=== PATIENT | female | born 1990 | race Caucasian/White ===

== ENCOUNTER 2025-02-09 13:19 | Emergency (ER) | payer OTHER, SELFPAY ==
--- OUTSIDE RECORDS SUMMARY | 2025-02-07 13:39 | XMS_ITS | Encounter Summary ---
Author Organization [facility] One [facility] tem Address [id number] [address] 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 She states that she is there for oxycodone abuse and last used 12 days ago. She was given 4mg of zofran in route. Pt reports headache. * Auth/Cert (Routine)SpecialtyDiagnoses / ProceduresReferred By ContactReferred To Contact [facility] [address] [place] [address] Phone: tel: fax: Referral IDStatusReasonStart DateExpiration DateVisits RequestedVisits [id number] Encounter Details DateTypeDepartmentCare Team (Latest Contact Info)Kalvlhhgouz34/04/2025 1:39 PM EST - 02/07/2025 3:57 PM ESTEmergency [facility] [address] [place] [address] Tonny Coelho, DO [address] [place] [address] Breakthrough seizure (CMS-HCC) (Primary Dx) Discharge Disposition: Home Social History Tobacco UseTypesPacks/DayYears UsedDateSmoking Tobacco: Never AssessedHunger ScreeningAnswerDate RecordedWithin the past 12 months we worried whether our food would run out before we got money to buy more.Never True02/08/2025Within the past 12 months the food we bought just didn't last and we didn't have money to get more.Never True02/08/2025CommentsUnknownSex and Gender InformationValueDate RecordedSex Assigned at BirthNot on fileLegal SexFemale 02/07/2025 1:35 PM ESTGender IdentityNot on fileSexual OrientationNot on file documented as of this encounter Last Filed Vital Signs Vital SignReadingTime TakenCommentsBlood Rhlajoof072/8012 3:30 PM EST Pwruk513302/07/2025 3:30 PM ESTTemperature--Respiratory Cwhx683804/10/2024 3:30 PM ESTOxygen Fywgsoowwc99%02/07/2025 3:30 PM ESTInhaled Oxygen Concentration-- Weight--Height--Body Mass Index--documented in this encounter Discharge Instructions * Discharge Instructions* MOOK Moscoso - 02/07/2025 3:25 PM EST Thank you for choosing us for your medical care. We know you have a choice, and we appreciate you choosing us for your medical concerns! You may receive a survey from the hospital about your visit. We very much appreciate your comments and concerns. Please read all medication insert instructions and side effects when dispensed by the pharmacy. Every medication has side effects, and you may experience any of them. Please call the emergency room with any questions or concerns you have. Please call your doctor for outpatient follow up and recommendations. The emergency room cannot replace ongoing care, and it is important for your personal physician to evaluate you and monitor your health. Return to the ER for increased pain, fever > 101.5, vomiting twice, or any concern you deem emergent. Valeri Delgado CNP documented in this encounter Medications at Time of Discharge MedicationSigDispense QuantityRefillsLast FilledStart DateEnd Date albuterol (PROVENTIL HFA;VENTOLIN HFA) 90 mcg/actuation inhaler Inhale 2 puffs every 6 (six) hours as needed for wheezing. biotin 10,000 mcg capsule Take by mouth. eletriptan (RELPAX) 40 mg tablet Take 1 tablet (40 mg total) by mouth once as needed for migraine. May repeat in 2 hours if unresolved. Do not exceed 80 mg in 24 hours. famotidine (PEPCID) 20 mg tablet Take 1 tablet (20 mg total) by mouth in the morning and 1 tablet (20 mg total) before bedtime. hydrOXYzine (ATARAX) 25 mg tablet Take 1 tablet (25 mg total) by mouth 3 (three) times a day as needed for itching. levETIRAcetam (KEPPRA) 500 mg tablet Take 1 tablet (500 mg total) by mouth in the morning and 1 tablet (500 mg total) before bedtime. loratadine (CLARITIN REDITABS) 10 mg disintegrating tablet Dissolve 1 tablet (10 mg total) on tongue in the morning. memantine (NAMENDA) 10 mg tablet Take 1 tablet (10 mg total) by mouth in the morning and 1 tablet (10 mg total) before bedtime. metoprolol tartrate (LOPRESSOR) 25 mg tablet Take 1 tablet (25 mg total) by mouth in the morning. mometasone-formoterol (DULERA) 200-5 mcg/actuation inhaler Inhale 2 puffs in the morning and 2 puffs before bedtime. omeprazole (PriLOSEC) 40 mg capsule Take 1 capsule (40 mg total) by mouth in the morning. OXcarbazepine (TRILEPTAL) 300 mg tablet Take 1 tablet (300 mg total) by mouth in the morning and 1 tablet (300 mg total) before bedtime. potassium chloride (KLOR-CON SPRINKLE) 10 MEQ CR capsule Take by mouth in the morning and before bedtime. prazosin (MINIPRESS) 2 mg capsule Take 1 capsule (2 mg total) by mouth nightly. QUEtiapine (SEROquel) 100 mg tablet Take 1 tablet (100 mg total) by mouth nightly. sertraline (ZOLOFT) 100 mg tablet Take 1 tablet (100 mg total) by mouth in the morning.documented as of this encounter ED Notes * Tonny Coelho, DO - 02/07/2025 1:55 PM EST Images from the original note were not included. [facility] - EMERGENCY Pt Name: Nakia Cannon Birthdate: 1990 Chief Complaint: Chief Complaint Patient presents with Seizure - Prior Hx Of Pt arrives from [facility] for c/o witnessed seizure. She states that she is there for oxycodone abuse and last used 12 days ago. She was given 4mg of zofran in route. Pt reports headache. History of Present Illness: Nakia Cannon is a 34 year old female that presents to ED via EMS from [facility] for complaint of breakthrough seizure. Patient states she has a history of psychogenic seizures dating back to 2011. Patient states she is currently in inpatient rehab for history of opiate addiction.States she has been taking her Keppra. Today staff noticed her having a seizure while sitting in a chair. Denies any falls or head injuries. Not currently postictal. Alert and oriented. 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 Past Surgical History: No past surgical history on file. Family History: No family history on file. Social History: Social History Socioeconomic History Marital status: Single Social Drivers of Health Financial Resource Strain: High Risk (12/12/2023) Received from [facility] Overall Financial Resource Strain (CARDIA) Difficulty of Paying Living Expenses: Very hard Food Insecurity: No Food Insecurity (01/15/2025) Received from [facility] Hunger Vital Sign Within the past 12 months, you worried that your food would run out before you got the money to buymore.: Never true Within the past 12 months, the food you bought just didn't last and you didn't have money to get more.: Never true Transportation Needs: No Transportation Needs (01/15/2025) Received from [facility] PRAPARE - Transportation In the past 12 months, has lack of transportation kept you from medical appointments or from getting medications?: No In the past 12 months, has lack of transportation kept you from meetings, work, or from getting things needed for daily living?: No Physical Activity: Inactive (12/12/2023) Received from [facility] Exercise Vital Sign On average, how many days per week do you engage in moderate to strenuous exercise (like a brisk walk)?: 0 days On average, how many minutes do you engage in exercise at this level?: 0 min Stress: Stress Concern Present (12/12/2023) Received from [facility] [place] [place] [employer] - Occupational Stress Questionnaire Feeling of Stress : Very much Social Connections: Socially Isolated (12/12/2023) Received from [facility] Social Connection and Isolation Panel In a typical week, how many times do you talk on the phone with family, friends, or neighbors?: More than three times a week How often do you get together with friends or relatives?: Twice a week How often do you attend congregational or restorationist services?: Never Do you belong to any clubs or organizations such as congregational groups, unions, fraternal or athletic groups, or school groups?: No How often do you attend meetings of the clubs or organizations you belong to?: Never Are you , , , , never , or living with a partner?: Never Interpersonal Safety: Patient Declined (09/26/2023) Received from [facility] Humiliation, Afraid, Rape, and Kick questionnaire Within the last year, have you been afraid of your partner or ex-partner?: Patient declined Within the last year, have you been humiliated or emotionally abused in other ways by your partner or ex-partner?: Patient declined Within the last year, have you been kicked, hit, slapped, or otherwise physically hurt by your partner or ex-partner?: Patient declined Within the last year, have you been raped or forced to have any kind of sexual activity by your partner or ex-partner?: Patient declined Housing Instability: Low Risk (01/15/2025) Received from [facility] Housing Stability Vital Sign In the last 12 months, was there a time when you were not able to pay the mortgage or rent on time?: No In the past 12 months, how many times have you moved where you were living?: 0 At any time in the past 12 months, were you homeless or living in a snf (including now)?: No Review of Systems: Review of Systems Constitutional: Negative for chills and fever. HENT: Negative for ear pain. Eyes: Negative for pain. Respiratory: Negative for shortness of breath. Cardiovascular: Negative for chest pain/discomfort. Gastrointestinal: Negative for abdominal pain, diarrhea, nausea and vomiting. Genitourinary: Negative for flank pain. Musculoskeletal: Negative for back pain. Skin: Negative for rash. Neurological: Positive for seizures. Negative for headaches. Psychiatric/Behavioral: Negative for sleep disturbance and suicidal ideas. Physical Exam: ED Triage Vitals [02/07/25 1348] Temp Heart Rate Resp BP SpO2 -- 78 18 122/73 100 % Temp src Heart Rate Source Patient Position BP Location FiO2 (%) -- Pulse Ox Sitting Left arm -- Vitals: 02/07/25 1348 BP: 122/73 Pulse: 78 Resp: 18 SpO2: 100% Physical Exam Vitals reviewed. HENT: Head: Normocephalic and atraumatic. Eyes: Conjunctiva/sclera: Conjunctivae normal. Cardiovascular: Rate and Rhythm: Normal rate. Pulmonary: Effort: Pulmonary effort is normal. Breath sounds: Normal breath sounds. Abdominal: General: There is no distension. Palpations: Abdomen is soft. Musculoskeletal: General: Normal range of motion. Cervical back: Normal range of motion and neck supple. Skin: General: Skin is warm and dry. Neurological: General: No focal deficit present. Mental Status: She is alert and oriented to person, place, and time. GCS: GCS eye subscore is 4. GCS verbal subscore is 5. GCS motor subscore is 6. Procedure: Procedures Re-evaluation: 1525 - no postictal period noted. No elevated lactate. Given loading dose of Keppra. Will dischargewith instructions to follow up with practitioner Neurology. Encouraged to continue with Keppra. Medical Decision Making Plan of care - loading dose of Keppra, labs, urine Amount and/or Complexity of Data Reviewed Labs: ordered. Decision-making details documented in ED Course. ED Course: Clinical Impressions as of 02/07/25 1525 Breakthrough seizure ([facility]) . ED Disposition ED Disposition Discharge Date/Time Sanna Feb 07, 2025 3:25 PM Comment At the time of discharge, the plan has been discussed with the patient regarding the diagnosis and prognosis. All questions have been answered. Verbal discharge instructions were discussed with the patient. The patient has been advised to follow up w ith their Primary Care Provider within 1 week. The patient was also instructed to return to the ED if their symptoms change, worsen, new symptoms arise or if they have any additional concerns. IDr. Coelho personally performed a ckre-up-wljc diagnostic evaluation on this patient. I personally made and approved the management plan for this patient and take responsibility for the patient management. Additional Notes/Findings: This is a 34-year-old female sent by EMS for evaluation of a possible seizure Patient does report a history of nonepileptic seizures States that she was recently started on Trileptal and Keppra States that she has been taking them as prescribed Describes that she was sitting in her chair when she had a presumed seizure event today No fall or injury Denies any recent illness or fever No cough or pulmonary concerns No chest pain Has had vague upper abdominal discomfort Has been intermittent without any specific precipitating, aggravating, or relieving factors No nausea/vomiting No genitourinary or stool complaints Denies any current paresthesias, focal weakness, or other neurologic concerns Review of systems otherwise negative On examination she appears in no acute distress Morbidly obese Heart is regular in rate and rhythm Lungs are clear to auscultation Abdomen is soft and nontender No rebound tenderness or guarding She is neuro intact GCS 15 She is alert and oriented IV Keppra ordered Labs reviewed Patient observed here for almost 2 hours No abnormal mentation or seizure activity Stable for outpatient follow up Admission not indicated Please note that portions of this note were completed with a voice recognition program. Efforts were made to edit the dictations but occasionally words are mis-transcribed. MOOK Moscoso 02/07/25 1402 Tonny Coelho DO 02/07/25 1439 MOOK Moscoso 02/07/25 1525 Tonny Coelho DO 02/07/25 1531 documented in this encounter Plan of Treatment Not on file documented as of this encounter Procedures Procedure NamePriorityDate/TimeAssociated DiagnosisCommentsER EXTRA URINE MARBLE STAT104/10/2024 2:52 PM EST ER EXTRA URINE IXDTJOPBLYG88/04/2025 2:52 PM EST ER EXTRA ZPJFLELDU75/04/2025 2:52 PM EST DRUG SCREEN, UOVYNETWB96/04/2025 2:52 PM EST POCT , URINE (NUCG)Enywirw2102/07/2025 2:29 PM EST POCT NURSING URINE MACROSCOPIC MUSmeztcz18/04/2025 2:27 PM EST LACTATE W/ AUPOAKODHU74/04/2025 2:09 PM EST CBC WITH AUTO OQHHNLJAANJXWPOH68/04/2025 2:09 PM EST XDEDZZKUXCDCS37/04/2025 2:09 PM EST LIPASESTAT Add-on02/07/2025 2:09 PM EST COMPREHENSIVE METABOLIC OHDWQNKZC34/04/2025 2:09 PM EST documented in this encounter Results * Drug Screen, Urine (02/07/2025 2:52 PM EST)ComponentValueRef RangeTest Method Analysis TimePerformed AtPathologist SignatureAMPHETAMINE/METHAMPNegative Rresnxjy47/04/2025 5:28 PM [facility] AMPH/METH screening cut off = 1000 ng/mLCOCAINE METABOLITENegativeNegative 02/07/2025 5:28 PM [facility]:Cocaine screening cut off value = 300 ng/vESDLLVTEArjajvqlDoqbrxxn10/04/2025 5:28 PM [facility]:Ecstasy screening cut off value = 500 ng/hSAXFHTMCRNItmpeyyyXkvsmkmx78/04/2025 5:28 PM [facility]:Methadone screening cut off value = 300 ng/mL.Opiates NstwodypJrnftlaa26/04/2025 5:28 PM [facility] Comment: Opiates screening cut off value = 300 ng/mL This test is used for the detection of codeine, hydrocodone (>1000 ng/mL), morphine and hydromorphone (>900 ng/mL) in urine. MNWPSIYWZJuvoriinJzggrzxd97/04/2025 5:28 PM [facility]: Oxycodone screening cut off value = 300 ng/mL This test is used for the detection of oxycodone and oxymorphone in urine. HCGQIJFFLVUNMZpktwmphGaaxgvne44/04/2025 5:28 PM [facility]:Phencyclidine screening cut off value = 25 ng/mLCANNABINOIDS HkgcuaxsCppxwgjc79/04/2025 5:28 PM [facility] Comment:Cannabinoids/THC screening cut off value = 50 ng/mLUrine Barbiturates YervskuxGdecpbuz00/04/2025 5:28 PM [facility] Comment:Barbiturates screening cut off value = 200 ng/mLBENZODIAZEPINESNegative Kfvtjzsc95/04/2025 5:28 PM [facility]: Benzodiazepines screening cut off value = 200 ng/mLSpecimen (Source)Anatomical Location / LateralityCollection Method / VolumeCollection TimeReceived TimeUrine 02/07/2025 2:52 PM EST02/07/2025 5:07 PM EST Narrative Authorizing ProviderResult TypeResult StatusAmber Danny TECHNICAL MANAGER-CNPURINE ORDERABLESFinal ResultPerforming OrganizationAddressty/State/[facility] CodePhone Number [address] [address], [place] * Extra Urine [place] (02/07/2025 2:52 PM EST)ComponentValueRef RangeTest Method Analysis TimePerformed AtPathologist SignatureExtra TubeAuto Resulted 02/07/2025 4:02 PM [facility] (Source) Anatomical Location / LateralityCollection Method / VolumeCollection Time Received TimeUrineUrine specimen collection, clean catch / Wkmwgvo5502/07/2025 2:52 PM EST02/07/2025 3:00 PM EST Narrative Authorizing ProviderResult TypeResult StatusAmber Danny TECHNICAL MANAGER-CNPURINE ORDERABLESFinal ResultPerforming OrganizationAddressty/[facility]/ZIP CodePhone Number [address] [address], [place] * Extra Urine Culture (02/07/2025 2:52 PM EST)ComponentValueRef RangeTest Method Analysis TimePerformed AtPathologist SignatureExtra TubeAuto Resulted 02/07/2025 4:02 PM ESTPROMarinHealth Medical Center (Source) Anatomical Location / LateralityCollection Method / VolumeCollection Time Received TimeUrineUrine specimen collection, clean catch / Iqwwcwe0502/07/2025 2:52 PM EST02/07/2025 3:00 PM EST Narrative Authorizing ProviderResult TypeResult StatusAmber Danny TECHNICAL MANAGER-CNPURINE ORDERABLESFinal ResultPerforming OrganizationAddressCity/State/ZIP CodePhone Number [address] [place] [address], [place] * Extra Urine (02/07/2025 2:52 PM EST)ComponentValueRef RangeTest MethodAnalysis TimePerformed AtPathologist SignatureExtra TubeAuto Zypjlwua94/04/2025 4:02 PM ESTPar[facility] (Source)Anatomical Location / LateralityCollection Method / VolumeCollection TimeReceived TimeUrineUrine specimen collection, clean catch / Cljyxjb4502/07/2025 2:52 PM EST02/07/2025 3:00 PM EST Narrative Authorizing ProviderResult TypeResult StatusAmber Danny TECHNICAL MANAGER-CNPURINE ORDERABLESFinal ResultPerforming OrganizationAddressty/State/ZIP CodePhone Number [address] [place] [address], [place] * POCT , urine (02/07/2025 2:29 PM EST)ComponentValueRef RangeTest MethodAnalysis TimePerformed AtPathologist SignaturePOC Urine NegativeNegative, Chupofurjpvdf84/04/2025 2:35 PM ESTPar[facility] (Source)Anatomical Location / LateralityCollection Method / VolumeCollection TimeReceived PgsfXvacu60/04/2025 2:29 PM EST 02/07/2025 2:35 PM EST Narrative Authorizing ProviderResult TypeResult StatusPOINT OF CARE TEST ORDERABLESFinal ResultPerforming OrganizationAddressty/State/ZIP CodePhone Number [address] [place] [address], [place] * (ABNORMAL) POCT Nursing Urine Macroscopic UA (02/07/2025 2:27 PM EST)Component ValueRef RangeTest MethodAnalysis TimePerformed AtPathologist [facility] Urine Specific Gravity1.0201.010, 1.015, 1.020, 1.7315902/07/2025 2:29 PM EST [facility] Urine Leukocyte EsteraseNegative Dlknvlqx87/04/2025 2:29 PM [facility] Urine NgwrruaUehhiennAzgytcpy87/04/2025 2:29 PM [facility] Urine pH6.05.0, 6.0, 6.5, 7.0, 7.5, 8.0, 8.5, 5. 2:29 PM [facility]PR[facility] Urine ProteinTrace(A)Negative 02/07/2025 2:29 PM [facility] Urine Glucose YryteygoTagxagxs13/04/2025 2:29 PM [facility] Urine KetonesTrace(A)Lflzncta25/04/2025 2:29 PM [facility] Urine Urobilinogen0.2 E.U./dL02/07/2025 2:29 PM [facility] Urine BilirubinSmall(A)Dzpfxbdw18/04/2025 2:29 PM [facility] Urine Blood/HGBTrace(A)Negative 02/07/2025 2:29 PM ESTGRAND LAKE JOINT TOWNSHIP DISTRICT MEM[facility]IAL HOSPITALpecimen (Source) Anatomical Location / LateralityCollection Method / VolumeCollection Time Received XzkoDhcbs36/04/2025 2:27 PM EST02/07/2025 2:29 PM EST Narrative Authorizing ProviderResult TypeResult StatusPOINT OF CARE TEST ORDERABLESFinal ResultPerforming OrganizationAddressCity/State/ZIP CodePhone Number [address] [place] [address], [place] * Lipase (02/07/2025 2:09 PM EST)ComponentValueRef RangeTest MethodAnalysis Time Performed AtPathologist AhfkacbgzDRYBGX4017 - 40 U/L104/10/2024 3:19 PM EST [facility] (Source)Anatomical Location / LateralityCollection Method / VolumeCollection TimeReceived TimeBloodVenous blood / UnknownVenipuncture / Vgyubif5902/07/2025 2:09 PM EST02/07/2025 2:20 PM EST Narrative Authorizing ProviderResult TypeResult StatusAmber Danny TECHNICAL MANAGER-CNPLAB BLOOD ORDERABLESFinal ResultPerforming OrganizationAddressCity/State/ZIP CodePhone Number [address] [address], [place] * Magnesium (02/07/2025 2:09 PM EST)ComponentValueRef RangeTest MethodAnalysis TimePerformed AtPathologist SignatureMAGNESIUM1.91.8 - 2.6 mg/dL02/07/2025 2:42 PM ESTPar[facility] (Source)Anatomical Location / LateralityCollection Method / VolumeCollection TimeReceived Time BloodVenous blood / UnknownVenipuncture / Gcvjrzk3802/07/2025 2:09 PM EST 02/07/2025 2:20 PM EST Narrative Authorizing ProviderResult TypeResult StatusAmber Delgado TECHNICAL MANAGER-CNPLAB BLOOD ORDERABLESFinal ResultPerforming OrganizationAddressCity/State/ZIP CodePhone Number [address] [place] [address], [place] * Lactate w/ Reflex (02/07/2025 2:09 PM EST)ComponentValueRef RangeTest Method Analysis TimePerformed AtPathologist SignatureLACTATE W/REFLEX1.30.4 - 2.0 mmol/L104/10/2024 2:41 PM ESTPar[facility] (Source)Anatomical Location / LateralityCollection Method / VolumeCollection TimeReceived TimeBloodVenous blood / UnknownVenipuncture / Opgtolm5602/07/2025 2:09 PM EST02/07/2025 2:20 PM EST Narrative [facility] - 02/07/2025 2:41 PM EST Result did not trigger repeat Lactate, re-order if needed. Authorizing ProviderResult TypeResult StatusAmber Danny TECHNICAL MANAGER-CNPLAB BLOOD ORDERABLESFinal ResultPerforming OrganizationAddressCity/State/ZIP CodePhone Number [facility] [address] [place] [address], * (ABNORMAL) Comprehensive metabolic panel (02/07/2025 2:09 PM EST)Component ValueRef RangeTest MethodAnalysis TimePerformed AtPathologist SignatureSODIUM 630062 - 146 mmol/L104/10/2024 2:42 PM ESTPROPOMONA [facility] POTASSIUM3.93.5 - 5.0 mmol/L104/10/2024 2:42 PM ESTMERCY [facility]ORAIN HOSPITALCHLORIDE10298 - 109 mmol/L104/10/2024 2:42 PM ESTPROPOMONA VALLEY HOSPITAL MEDICAL CENTERCARBON PKZVDVV1373 - 32 mmol/L104/10/2024 2:42 PM ESTMERCY [facility] LORAIN HOSPITALANION TOG699 - 15 mmol/L104/10/2024 2:42 PM EST [facility] HOSPITALBLOOD UREA FEAMRLWM643 - 23 mg/dL02/07/2025 2:42 PM ESTMERCY [facility] LORAIN HOSPITALCREATININE0.920.40 - 1.00 mg/dL 02/07/2025 2:42 PM [facility]Comment:METHOD TRACEABLE TO IDMS TBHDOFXMKOXHNUL6714 - 99 mg/dL02/07/2025 2:42 PM EST [facility] HOSPITALCALCIUM9.08.5 - 10.5 mg/dL02/07/2025 2:42 PM ESTMERCY HE[facility] LORAIN HOSPITALTOTAL PROTEIN7.06.0 - 8.0 g/dL 02/07/2025 2:42 PM ESTMERCY [facility] LORAIN HOSPITALALBUMIN4.03.2 - 5.3 g/dL02/07/2025 2:42 PM ESTMERCY HE[facility] LORAIN HOSPITALALKALINE MZWYAATGSQZ5480 - 130 U/L104/10/2024 2:42 PM ESTPROPOMONA VALLEY HOSPITAL MEDICAL CENTERAST28<=41 U/L104/10/2024 2:42 PM [facility] ALT32(H)<=31 U/L104/10/2024 2:42 PM [facility] BILIRUBIN,TOTAL0.50.3 - 1.2 mg/dL02/07/2025 2:42 PM [facility]IL[facility] HOSPITALEGFR Non-Race Azabcfmuh07>=60 ml/min/1.73sq.m104/10/2024 2:42 PM [facility]ITALComment: eGFR not reported due to non-numeric value for Creatinine. Reported eGFR is based on the CKD-EPI 2020 equation that does not use a race coefficient. Specimen (Source)Anatomical Location / LateralityCollection Method / Volume Collection TimeReceived TimeBloodVenous blood / UnknownVenipuncture / Unknown 02/07/2025 2:09 PM EST02/07/2025 2:20 PM EST Narrative Authorizing ProviderResult TypeResult StatusAmber Locust TECHNICAL MANAGER-CNPLAB BLOOD ORDERABLESFinal ResultPerforming OrganizationAddressCity/State/ZIP CodePhone Number [facility] [address] * (ABNORMAL) CBC auto differential (02/07/2025 2:09 PM EST)ComponentValueRef RangeTest MethodAnalysis TimePerformed AtPathologist SignatureWBC5.74 - 11 10^902/07/2025 2:31 PM [facility]RBC Count3.95 3.8 - 5.2 10^12L104/10/2024 2:31 PM [facility] Nsxgikxxse74.3(L)11.7 - 15.5 g/dL02/07/2025 2:31 PM [facility]Hematocrit34.8(L)35 - 47 %02/07/2025 2:31 PM [facility]MCV8880 - 100 fL02/07/2025 2:31 PM [facility]MCH28.627 - 34 pg02/07/2025 2:31 PM [facility]MCHC32.532 - 36 g/dL02/07/2025 2:31 PM [facility]STM[facility]ITALRDW15.011.5 - 15 %02/07/2025 2:31 PM [facility]ITALPlatelet Ueuub401440 - 450 10^9/L104/10/2024 2:31 PM [facility]MPV8.17 - 12 fL02/07/2025 2:31 PM EST [facility]ITALNeutrophils %54.9%02/07/2025 2:31 PM EST [facility]ITALLymphocytes %31.2%02/07/2025 2:31 PM EST [facility]ITALMonocytes %10.8%02/07/2025 2:31 PM EST [facility]ITALEosinophils %1.8%02/07/2025 2:31 PM EST [facility]ITALBasophils %1.3%02/07/2025 2:31 PM EST [facility]ITALNeutrophils Absolute (A)3.11.5 - 6.6 10^9/L 02/07/2025 2:31 PM [facility]ymphocytes Absolute 1.81.0 - 3.5 10^9/L104/10/2024 2:31 PM [facility] Monocytes Absolute0.60.0 - 0.9 10^9/L104/10/2024 2:31 PM [facility]STMER[facility]ITALEosinophils Absolute0.10.0 - 0.4 10^9/L104/10/2024 2:31 PM EST [facility]Basophils Absolute0.10.0 - 0.2 10^9/L 02/07/2025 2:31 PM ESTMER[facility]OS[facility]ITALDifferential Type AUTOMATED WUOIZRTBRAWS42/04/2025 2:31 PM [facility]imen (Source)Anatomical Location / LateralityCollection Method / VolumeCollection TimeReceived TimeBloodVenous blood / UnknownVenipuncture / Iqvbddj0402/07/2025 2:09 PM EST02/07/2025 2:20 PM EST Narrative Authorizing ProviderResult TypeResult StatusAmber Danny TECHNICAL MANAGER-CNPLAB BLOOD ORDERABLESFinal ResultPerforming OrganizationAddressCity/State/ZIP CodePhone Number [facility] [address] [place] [address], [place] documented in this encounter Visit Diagnoses Diagnosis Breakthrough seizure ([facility])- Primary documented in this encounter Administered Medications Medication OrderMAR ActionAction DateDoseRateSite levETIRAcetam (KEPPRA) 1,500 mg in sodium chloride 0.9 % 115 mL IVPB 1,500 mg, intravenous, at 460 mL/hr, Administer over 15 Minutes, Once, On Sanna 02/07/25 at 1355, For 1 dose, Look-alike/sound-alike medication. Verify indication for use. New Bag02/07/2025 2:24 PM EST1,500 mg460 mL/hrdocumented in this encounter Active and Recently Administered Medications Times are shown in EST.Medication Order// levETIRAcetam (KEPPRA) 1,500 mg in sodium chloride 0.9 % 115 mL IVPB (COMPLETED) 1,500 mg, intravenous, at 460 mL/hr, Administer over 15 Minutes, Once, On Sanna 02/07/25 at 1355, For 1 dose, Look-alike/sound-alike medication. Verify indication for use. * 1424 (New Bag - Provider: Westley Marcus RN) * 1439 (Stop Bag - Provider: Westley Marcus RN) documented in this encounter Care Teams Team MemberRelationshipSpecialtyStart DateEnd Date Derick Padgett MD [address] [address] PCP - GeneralInternal Tqrefycu82/4/25documented as of this encounter
--- OUTSIDE RECORDS SUMMARY | 2025-02-08 22:31 | XMS_ITS | Encounter Summary ---
Author Organization [facility] [employer] Career[employer] [facility] tem Address [id number] [address] [place] [address] Care Team Providers Care Ore Mixer Name Role Phone Derick Padgett MD Primary Care Provider Reason for Visit * ReasonCommentsSeizure - Prior Hx OfPt states she has had 4 seizures since 5pm. [facility]. She states that anxiety is what brings them on and she feels she needs something for anxiety. * Auth/Cert (Routine)SpecialtyDiagnoses / ProceduresReferred By ContactReferred To Contact [facility] [address] [facility] [place] [address] Phone: tel: fax: Referral IDStatusReasonStart DateExpiration DateVisits RequestedVisits [id number] Encounter Details DateTypeDepartmentCare Team (Latest Contact Info)Rudstjdroqf04/05/2025 10:31 PM EST - 02/08/2025 11:22 PM ESTEmergency [facility] [address] [place] [id number] Claudette Oliveros, DO [address] [place] [address] Anxiety (Primary Dx); Seizure with normal neurologic examination (CMS-HCC) Discharge Disposition: Home Social History Tobacco UseTypesPacks/DayYears UsedDateSmoking Tobacco: NeverSmokeless Tobacco: Never Tobacco Cessation:Counseling Given: Not Answered Hunger ScreeningAnswerDate RecordedWithin the past 12 months we worried whether our food would run out before we got money to buy more.Never True02/08/2025 Within the past 12 months the food we bought just didn't last and we didn't have money to get more.Never True02/08/2025CommentsNoSex and Gender InformationValueDate RecordedSex Assigned at BirthNot on fileLegal SexFemale 02/07/2025 1:35 PM ESTGender IdentityNot on fileSexual OrientationNot on file documented as of this encounter Last Filed Vital Signs Vital SignReadingTime TakenCommentsBlood Mlsryqpl411/8902/08/2025 11:12 PM EST Mczia055102/08/2025 11:12 PM IWIQlxjeyuuwvf89.9 ??C (98.5 ??F)02/08/2025 10:17 PM ESTRespiratory Xier441904/11/2024 11:12 PM ESTOxygen Rvpzfnrfgz12%02/08/2025 11:12 PM ESTInhaled Oxygen Concentration--Fdhvte970.7 kg (275 lb)02/08/2025 10:17 PM YDBNstvuk580.6 cm (5' 4 )02/08/2025 10:17 PM ESTBody Mass Index47. 10:17 PM ESTdocumented in this encounter Discharge Instructions * Discharge Instructions* Claudette Oliveros DO - 02/08/2025 11:09 PM EST Continue with the treatment at [facility]. Thank you for allowing me to participate in your healthcare needs and for choosing us to provide your medical care today. Please return to the emergency department anytime for any complications or other concerns. Please call your doctor for outpatient follow up and recommendations. 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 * Attachments The following attachments cannot be sent through Care Everywhere. * Anxiety (suspected) in adults ??? ED discharge instructions (Beninese) documented in this encounter Medications at Time [...] as of this encounter ED Notes * Claudette Oliveros, - 02/08/2025 11:09 PM EST Images from the original note were not included. [facility] Pt Name: Nakia Cannon Birthdate: 1990 Chief Complaint: Chief Complaint Patient presents with Seizure - Prior Hx Of Pt states she has had 4 seizures since 5pm. Pt is at [facility] for opioid abuse. She states that anxiety is what brings them on and she feels she needs something for anxiety. History of Present Illness: Patient is a 34-year-old female who presents to the emergency department with complaints of seizures and anxiety. Patient says she has a longstanding history of anxiety disorder she was actually at [facility] rehab facility getting over I believe narcotic use and doing well than free of the medicationfor about 10-14 days at this time. 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 She said Ativan usually helps and they are giving her currently hydralazine which is not helping as she would hope. No other modifying or associated factors. Past Medical History: Past Medical History: Diagnosis Date Autonomic neuropathy POTS (postural orthostatic tachycardia syndrome) Seizures (CMS-HCC) Past Surgical History: History reviewed. No pertinent surgical history. Family History: History reviewed. No pertinent family history. Social History: Social History Socioeconomic History Marital status: Single Tobacco Use Smoking status: Never Smokeless tobacco: Never Social Drivers of Health Financial Resource Strain: High Risk (12/12/2023) Received from [facility] Overall Financial Resource Strain (CARDIA) Difficulty of Paying Living Expenses: Very hard Food Insecurity: No Food Insecurity (02/08/2025) Hunger Screening Food Insecurity - Worry: Never True Food Insecurity - Inability: Never True Transportation Needs: No Transportation Needs (01/15/2025) Received from [facility] PRAPARE - Transportation In the past 12 months, has lack of transportation kept you from medical appointments or from getting medications?: No In the past 12 months, has lack of transportation kept you from meetings, work, or from getting things needed for daily living?: No Physical Activity: Inactive (12/12/2023) Received from [facility] Exercise Vital Sign On average, how many days per week do you engage in moderate to strenuous exercise (like a brisk walk)?: 0 days On average, how many minutes do you engage in exercise at this level?: 0 min Stress: Stress Concern Present (12/12/2023) Received from [facility] [employer] [place] [employer] - Occupational Stress Questionnaire Feeling of Stress : Very much Social Connections: Socially Isolated (12/12/2023) Received from [facility] Social Connection and Isolation Panel In a typical week, how many times do you talk on the phone with family, friends, or neighbors?: More than three times a week How often do you get together with friends or relatives?: Twice a week How often do you attend quaker or anglican services?: Never Do you belong to any clubs or organizations such as quaker groups, unions, fraternal or athletic groups, or school groups?: No How often do you attend meetings of the clubs or organizations you belong to?: Never Are you , , , , never , or living with a partner?: Never Interpersonal Safety: Patient Declined (09/26/2023) Received from [facility] Humiliation, Afraid, Rape, and Kick questionnaire Within [...] Housing Instability: Low Risk (01/15/2025) Received from [facility] Housing Stability Vital Sign In the last 12 months, was there a time when you were not able to pay the mortgage or rent on time?: No In the past 12 months, how many times have you moved where you were living?: 0 At any time in the past 12 months, were you homeless or living in a chcf (including now)?: No Review of Systems: Review of Systems Physical Exam: ED Triage Vitals [02/08/257] Temp Heart Rate Resp BP SpO2 36.9 ??C (98.5 ??F) 88 14 (!) 145/98 96 % Temp src Heart Rate Source Patient Position BP Location FiO2 (%) -- -- -- -- -- Vitals: 02/08/25 2217 BP: (!) 145/98 Temp: 36.9 ??C (98.5 ??F) Pulse: 88 Resp: 14 SpO2: 96% Height: 162.6 cm (5' 4 ) Weight: 124.7 kg (275 lb) Physical Exam Vitals and nursing note reviewed. Constitutional: General: She is not in acute distress. Appearance: She is well-developed. She is obese. She is not ill-appearing or diaphoretic. HENT: Head: Normocephalic and atraumatic. Right Ear: External ear normal. Left Ear: External ear normal. Nose: Nose normal. Mouth/Throat: Mouth: Mucous membranes are moist. Eyes: General: No scleral icterus. Extraocular Movements: Extraocular movements intact. Conjunctiva/sclera: Conjunctivae normal. Pupils: Pupils are equal, round, and reactive to light. Neck: Thyroid: No thyromegaly. Vascular: No JVD. Trachea: No tracheal deviation. Cardiovascular: Rate and Rhythm: Normal rate and regular rhythm. Heart sounds: Normal heart sounds. No murmur heard. No friction rub. No gallop. Pulmonary: Effort: Pulmonary effort is normal. No respiratory distress. Breath sounds: Normal breath sounds. No wheezing or rales. Chest: Chest wall: No tenderness. Abdominal: General: Bowel sounds are normal. There is no distension. Palpations: Abdomen is soft. There is no mass. Tenderness: There is no abdominal tenderness. There is no guarding or rebound. Musculoskeletal: General: No tenderness or deformity. Normal range of motion. Cervical back: Normal range of motion and neck supple. Skin: General: Skin is warm and dry. Capillary Refill: Capillary refill takes less than 2 seconds. Findings: No rash. Neurological: General: No focal deficit present. Mental Status: She is alert and oriented to person, place, and time. Cranial Nerves: No cranial nerve deficit. Psychiatric: Mood and Affect: Mood normal. Behavior: Behavior normal. Judgment: Judgment normal. Comments: Patient admits to being anxious in dealing with her rehab process. She is not suicidal nor homicidal Procedure: Procedures Re-evaluation: Re-Evaluation Medical Decision Making After I left the room in discussion with the patient that would give her a dose of Ativan she had apseudo-seizure and was very easily arousable and is at baseline discuss this with her we will give her the 1 dose of Ativan but she needs to go back to [facility] and follow up with her primary care physician team. Patient is agreeable to the outpatient management. Amount and/or Complexity of Data Reviewed External Data Reviewed: radiology. Details: 01/08/2025 CT brain negative Risk Prescription drug management. ED Course: Clinical Impressions as of 02/08/25 230 Anxiety Seizure with normal neurologic examination ([facility]) - Pseudo-seizure . ED Disposition ED Disposition Discharge Date/Time TueFeb 08, 2025 11:08 PM Comment At the time of discharge, [...] or if they have any additional concerns. . Please note that portions of this note were completed with a voice recognition program. Efforts were made to edit the dictations but occasionally words are mis-transcribed. Claudette Oliveros DO 02/08/25 5584 * Jose Eastman RN - 02/08/2025 10:52 PM EST Pt pressed call light, this nurse walked into pts room to answer and pt appeared to be seizing. This nurse lowered head of bed to flat and sternal rubbed pt, and called provider to bedside. Pt stopped seizing and opened bilateral eyes when this nurse sternal rubbed pt. . Pt asked what happened and this nurse answered pts question. documented in this encounter Plan of Treatment Not on file documented as of this encounter Visit Diagnoses Diagnosis Anxiety- Primary Anxiety state, unspecified [facility]iz[facility] with normal [facility] examination [facility] documented in this encounter Administered Medications Medication OrderMAR ActionAction DateDoseRateSite LORazepam (ATIVAN) tablet 1 mg 1 mg, oral, Once, On Tue02/08/25 at 2254, For 1 dose, Look-alike/sound-alike medication - verify indication for use. Given02/08/2025 11:00 PM EST1 mgdocumented in this encounter Active and Recently Administered Medications Times are shown in EST.Medication Order LORazepam (ATIVAN) tablet 1 mg (COMPLETED) 1 mg, oral, Once, On Tue02/08/25 at 2254, For 1 dose, Look-alike/sound-alike medication - verify indication for use. * 2300 (Given - Provider: Jose Eastman RN) documented in this encounter Care Teams Team MemberRelationshipSpecialtyStart DateEnd Date Derick Padgett MD [address] [address] PCP - GeneralInternal Lchircmx30/4/25documented as of this encounter
[2025-02-09] VITALS (14 sets, daily range): BP systolic 120–122; BP diastolic 69–80; PULSE 74–96; TEMP 36.8; O2SAT 97–99; BMI 47.2
--- NOTE | 2025-02-09 13:32 | ECG_ITS ---
The [facility] Test Date: 2025-02-09 Pat Name: RAVINDER KANG Department: Room: - Gender: Female [employer] T[employer]: : 1990 Requested By: 1030 Order Number: [id number] Reading MD: PAULA PELLETIER M.D. Measurements Intervals [place] Rate: 82 P: 61 OK: 166 QRS: 2 QRSD: 78 T: 42 QT: 382 QTc: 421 Interpretive Statements 1100 Sinus rhythm 8102 Low QRS voltage in chest leads 9120 atypical ECG No previous ECG available for comparison Electronically Signed On 02-09-2025 15:08:55 EST by PAULA PELLETIER M.D.
--- NOTE | 2025-02-09 13:32 | CT_ITS ---
The [address] [address] Patient Name: RAVINDER KANG MRN: [id number] date: 1990 Sex: F Assigned Patient Location: ER Current Patient Location: ED.MAIN Accession/Order Number: [id number] Exam Date: 02/09/2025 15:00 Report Date: 02/09/2025 15:41 At the request of: WILLIAM MARIE MD Procedure: CT head/brain wo con CT BRAIN WITHOUT CONTRAST: CLINICAL HISTORY: Reported seizure COMPARISON: None TECHNIQUE: Contiguous axial unenhanced images were obtained through the brain. This CT exam was performed using one or more following dose reduction techniques: Automated exposure control, adjustment of the mA and/or kV according to patient size, or use of iterative reconstruction technique. FINDINGS: There is no evidence of midline shift, intra or extra-axial fluid collection, hemorrhage or CT evidence of acute large vascular distribution stroke. Visualized intraorbital contents appear unremarkable. Visualized paranasal sinuses are clear. The surrounding soft tissues are normal. CT/CT head/brain wo con IMPRESSION: NO ACUTE INTRACRANIAL ABNORMALITY. Impression dictated by: Seun Eduardo M.D. 02/09/2025 3:41 PM Dictation Location: [place] [address] Electronically authenticated by: [id number] Y Date: 02/09/2025 15:41
--- OUTSIDE RECORDS SUMMARY | 2025-02-09 13:39 | XMS_ITS | Clinical Summary ---
Author Organization [facility] Address [address] [place] [address] Care Team Providers Care Bell Person Name Role Phone Unavailable Primary Care Provider Unavailabl e Source Comments [facility] is fully rolled out with thefollowing exceptions:General Clinical Research [facility] Social History Tobacco UseTypesPacks/DayYears UsedDateSmoking Tobacco: Never Assessed CommentsUnknownSex and Gender InformationValueDate RecordedSex Assigned at Not on fileLegal WszQarjar15/16/2012 5:22 AM ESTGender IdentityNot on fileSexual OrientationNot on file Plan of Treatment Health MaintenanceDue DateLast DoneCommentsMMR IMMUNIZATION (1 of 1 - Standard series)05/30/1992DTAP/Tdap/Td IMMUNIZATION (1 - Tdap)05/30/1998VARICELLA IMMUNIZATION (1 of 2 - 13+ 2-dose series)05/30/2004HEPATITIS B IMMUNIZATION (1 of 3 - 19+ 3-dose series)05/30/2010HPV IMMUNIZATION (1 - 3-dose SCDM series) 05/30/2018AMB SEASONAL FLU VACCINE (#1)5COVID-19 Vaccine ( - 2024- season)2024HIB IMMUNIZATIONAged OutNo longer eligible based on patient's age to complete this topicIPV IMMUNIZATIONAged OutNo longer eligible based on patient's age to complete this topicMCV4 IMMUNIZATIONAged OutNo longer eligible based on patient's age to complete this topicMENINGOCOCCAL B VACCINEAged OutNo longer eligible based on patient's age to complete this topicPNEUMOCOCCAL IMMUNIZATIONAged OutNo longer eligible based on patient's age to complete this topicRespiratory Syncytial Virus (RSV) <20moAged OutNo longer eligible based on patient's age to complete this topic
--- OUTSIDE RECORDS SUMMARY | 2025-02-09 13:40 | XMS_ITS | Clinical Summary ---
Author Organization [facility] Address [address] [place] [address] Care Team Providers Care Facilities Operations Technician Name Role Phone Nasrin Bustamante MD Unavailable [phone] Derick Padgett MD Primary Care Provider [phone] Allergies Active AllergyReactionsCriticalityNoted DateCommentsProchlorperazineAnxiety 11/11/2015FludrocortisoneOther (See Comments)High06/03/2013 Severe symptomatic hypokalemia FpjfcFokja82/02/3563WjnvxovqilErlnbpp91/08/2014 dizziness, headache, chest pain. Allergy is very questionable. Pt continues to complain of similar symptoms despite Prednisone being off. MsfirhqeyqkobcIouxhgd90/06/2016 Medications * This document contains information received from the source organization and may not represent a complete record from that organization. MedicationSigDispense QuantityRefillsLast FilledStart DateEnd DateStatus trazodone (DESYREL) 100 MG TABS Indications:insomniaTake 1-2 tablets by mouth nightly. Indications: insomnia 60 tablet Active prazosin (MINIPRESS) 2 MG CAPS Indications:nightmaresTake 1 capsule by mouth nightly. Indications: nightmares 15 capsule Active loratadine (CLARITIN) 10 MG TABS Take 10 mg by mouth daily.Active QUEtiapine (SEROQUEL) 300 mg tablet Take 300 mg by mouth 2 (two) times a day.Active linaclotide (LINZESS) 290 MCG CAPS Take 290 mcg by mouth daily.11/23/2018Active ondansetron (ZOFRAN) 4 mg tablet Indications:Nausea and vomiting, intractability of vomiting not specified, unspecified vomiting typeTake 1 tablet by mouth every 8 (eight) hours as needed (vomiting). 9 tablet 10/07/2021ctive methocarbamol (ROBAXIN) 750 MG TABS Take 1 tablet by mouth 3 (three) times daily as needed. 21 tablet 04/09/2022ctive FLUoxetine (PROZAC) 20 MG CAPS Take 20 mg by mouth daily.10/21/2022ctive acetaZOLAMIDE (DIAMOX) 250 MG TABS Take 250 mg by mouth.11/24/2022ctive albuterol (PROVENTIL) (2.5 mg/3 mL) 0.083% nebulizer solution SMARTSIG:Via Ppeuoderz78/20/2023ctive azelastine 0.1% (ASTELIN) 137 mcg/spray nasal spray SMARTSIG:Both Nares11/24/2022ctive folic acid (FOLVITE) 1 MG TABS SMARTSI By Mouth Twice Daily11/24/2022ctive meloxicam (MOBIC) 15 MG TABS Take 15 mg by mouth daily.11/24/2022ctive memantine (NAMENDA) 10 MG TABS Take 10 mg by mouth.11/24/2022ctive metoprolol succinate (TOPROL-XL) 25 mg extended-release tablet Take 25 mg by mouth daily.11/24/2022ctive midodrine (PROAMATINE) 2.5 MG TABS Take 2.5 mg by mouth 3 (three) times daily.11/24/2022ctive omeprazole (PRILOSEC) 20 MG CPDR Take 20 mg by mouth.11/24/2022ctive potassium chloride (KLOR-CON, K-TAB) 10 MEQ TBCR Take 10 mEq by mouth daily.11/24/2022ctive sodium chloride 1 g TABS SMARTSI By Mouth Daily11/27/2022ctive traZODone (DESYREL) 150 MG TABS SMARTSI-2 Tablet(s) By Mouth Every Night PRN11/24/2022ctive montelukast (SINGULAIR) 10 MG TABS Take 1 tablet by mouth at bedtime. 30 tablet 110/17/2023Active budesonide-formoterol (SYMBICORT) 80-4.5 MCG/ACT AERO 2 puffs 2 (two) times daily.Active diclofenac DR (VOLTAREN) 75 MG TBEC Take 75 mg by mouth 2 (two) times daily.Active fluticasone (FLONASE) 50 mcg/act nasal spray Use 1 spray in each nostril daily as needed.Active ipratropium-albuterol (DUONEB) 0.5-2.5 (3) MG/3ML nebulizer solution Inhale 3 mLs with nebulizer daily.Active OLANZapine (ZYPREXA ZYDIS) 5 mg disintegrating tablet Dissolve and swallow 5 mg by mouth daily as needed.5Active QUEtiapine (SEROQUEL) 300 mg tablet Take 1 tablet by mouth 2 (two) times a day. 60 tablet 5Active sertraline (ZOLOFT) 50 MG TABS Take 2 tablets by mouth daily. 60 tablet 5Active traZODone (DESYREL) 300 MG TABS Take 1 tablet by mouth at bedtime. 30 tablet 5Active OLANZapine (ZYPREXA ZYDIS) 5 mg disintegrating tablet Dissolve and swallow 1 tablet by mouth at bedtime. Place tablet in mouth and allow to dissolve. Swallow with saliva. 30 tablet 5Active Active Problems ProblemNoted DateDiagnosed DateAuditory hvsyirvqsucdra57/17/2016Visual myhmvnnmgoitrm13/17/2016Syncope and /13/2016History of psychiatric gjcewnzj03/13/2016Atypical chest pain07/18/20156123Hpcrkyxponb48/13/2016Hyponatremia 07/18/20155048Dodmklvcbhl08/13/3526Bpmjejiuyvpzx64/13/2016Recurrent major depression in partial qhcqubdfy95/13/2016Idiopathic zpwosbisziu32/19/2016Sinus tachycardia 06/24/20151005Smuhzmuj91/12/2016Chest pain, geahqykttjomzod73/11/2016UTI (urinary tract infection)06/13/2015Psychosomatic pdyzrxfa97/07/1673Bsqyaz71/07/2016 Attention deficit hyperactivity disorder (ADHD)04/26/2015Mild intermittent asthma without ggubgtqmdgao85/20/2016Depression with suicidal znvwhanc35/06/2016 UTI (urinary tract infection)03/12/2015Urinary retention s/p bladder stimulator jpfgsskoi18/06/2016Lumbosacral spondylosis without kqvktrnrsy95/02/2015POTS (postural orthostatic tachycardia syndrome)02/13/2014Vasovagal eprcksu6102/13/2014 Citrobacter hkoqvaqad41/28/2014Neurogenic vftprfg1901/30/2014utonomic dysfunction 01/30/2014Severe major depression with psychotic ccvuzuar24/26/2014 Pyelonephritis, acute01/29/2014Nausea and qfykybwc66/25/7131Dwtfvguuz50/03/2014 DEPRESSION // PXYYCZO5004/28/2013 Overview (01/02/2014): Sees the [facility]. Psychotic features, PTSD, borderline also diagnosed Seasonal evginupqo07/07/2013sthma (hx)08/11/2012Lumbosacral ligament sprain 12/04/20108748Lnhffdilrbcn40/21/2011norexia nervosaDifficulty concentrating Excessive daytime sleepinessMemory disturbanceMood disturbanceMorning headache PND (paroxysmal nocturnal dyspnea)RLS (restless legs syndrome)Nausea and vomiting in adultAdjustment disorder with mixed anxiety and depressed mood Borderline personality disorderSevere recurrent major depressive disorder with psychotic featuresSevere episode of recurrent major depressive disorder, with psychotic features Resolved Problems ProblemNoted DateDiagnosed DateResolved DateAbdominal pain, RUQ (right upper quadrant)Nonintractable xslonsdg06 Pdbbbmpnjzx52 Overview (01/02/2014): Essentially normal ekg and echo. Ojdqtheyrzc85Lumbosacral ligament quiudz63 Seborrheic kxxfklcehe03Postural xnvpegiblmm74/03/2014 01/02/2014cetaminophen pscobznh74/21/3335Tpmjxrfxfwj77/21/2014 05/04/20138620Axaodpqfmqdx22/21/Low serum cortisol level04/27/2013 05/11/2013Reactive lrjfppqsvq49nxiety Throat painDysphagiaCough04/14/2013 04/23/2013cute upper respiratory okndygbsi79Dizziness Precordial painradycardia, sinus Syncope, atzbkxwdj87Palpitations04/21/2012 01/02/2014EXCESSIVE MDEKEQUIQAQS07Severe recurrent major depression with psychotic paadzcca68/29/2014orderline personality disorder 01/02/2014nxiety /29/2014cute urinary /29/2014 Encounters DateTypeDepartmentCare JcerDmagibhqsxz65/14/2025 5:53 PM EST - 01/18/2025 8:33 PM ESTEmer[facility] [address] [place] [address] Gregory Perez MD Other specified injuries of head, initial encounter [S09.8XXA] Discharge Disposition: Home or Self Carefrom Last 3 Months Immunizations ImmunizationAdministration DatesNext DueDT, Dzfxadazl28/21/2003DUONEB IS 2.5 MG 05/23/2015Diphtheria, Tetanus, and Pertussis (DTaP)11/21/1995,12/02/1992, 03/04/1992,1991,1991Hepatitis A, IM (19 and older)04/22/2011, 08/04/2010Hepatitis B, Adult08/04/2010,01/12/2010,11/11/2009,06/25/2002Hib PRP-T conjugate, IM (ActHIB, Hiberix)09/02/1992,03/04/1992,1991,1991 Influenza Vaccine, Inactivated, Quadrivalent PF12/21/2014Influenza Whole, IM 01/30/2014,02/24/2007,03/11/2003Measles/Mumps/Rubella, SQ10/02/2010,11/20/1999, 09/02/1992Meningococcal Polysaccharide Vaccine LFEC413Poliovirus Inactivated, IM/SQ08/04/2010TB-PPD06/04/1992Tdap (Tetanus, Diphtheria & Pertussis)11/11/2009Trivalent Poliovirus Vaccine, Live, Oral11/21/1995, 12/02/1992,1991,1991 Family History Medical HistoryRelationNameCommentsAsthmaBrother 1DiabetesBrother 1Mental illnessBrother 1Alcohol abuseFatherHypertensionFatherAsthmaMotherHigh BPMother HypertensionMotherOSAPaternal AuntendometriosisPaternal Auntand maternal aunt DefectsSister 1Kidney DiseaseSister 1Learning disabilitiesSister 1Mental retardationSister 1CPSister 2autismSister 3RelationNameStatusCommentsBrother 1 AliveBrother 2AliveFatherAliveMotherAlivePaternal AuntSister 1AliveKaylaSister 2 Sister 3 Social History Tobacco UseTypesPacks/DayYears UsedDateSmoking Tobacco: FormerCigarettesPassive Smoke Exposure: PastSmokeless Tobacco: Never Tobacco Cessation:Counseling Given: Not Answered Alcohol UseStandard Drinks/WeekCommentsNot Currently0 (1 standard drink = 0.6 oz pure alcohol)occFood InsecuritiesAnswerDate RecordedWorried about running out of foodNot on file03/26/2023Food BoughtNot on 03/26/2023Housing/Utilities AnswerDate RecordedWorried about losing homeNot on 03/26/2023Stayed outside houseNot on 03/26/2023Unable to get utilitiesNot on 03/26/2023 Interpersonal SafetyAnswerDate RecordedFeel physically or emotionally unsafe where currently liveNot on 03/26/2023Harm by anyoneNot on file03/26/2023 Emotionally HarmedNot on 03/26/2023TransportationAnswerDate RecordedWorried about transportationNot on 03/26/2023CommentsNoSex and Gender InformationValueDate RecordedSex Assigned at BirthNot on fileLegal SexFemale 06/02/2012 9:23 PM EDTGender IdentityNot on fileSexual OrientationNot on file OccupationIndustryJob Start DateJob End Dateday careNot on fileNot on fileNot on file Last Filed Vital Signs Vital SignReadingTime TakenCommentsBlood Sreitavt729/6711 8:20 PM EST Grfnc840501/18/2025 8:20 PM ZACHwdgydnpuwh66.3 ??C (97.3 ??F)01/18/2025 5:28 PM ESTRespiratory Ztgp164303/20/2024 8:20 PM ESTOxygen Befmvotqmp82%01/18/2025 8:20 PM ESTInhaled Oxygen Concentration--Lnodpu348.4 kg (272 lb)01/18/2025 5:26 PM JRNJyehqm075.6 cm (5' 4 )01/18/2025 5:26 PM ESTBody Mass Index46.6901/18/2025 5:26 PM EST Plan of Treatment Health MaintenanceDue DateLast DoneCommentsPap Vmvrdemzh30/22/, 11/07/2014, 09/10/2013, Additional history existsHPV (1 - 3-dose SCDM series) 05/30/2018COVID-19 Vaccine ( season)/10/2020, 04/20/2020 DTap,Tdap,and Td (8 - Td or Tdap), 11/11/2009, 11/21/1995, Additional history existsRSV Vaccine (60+ or ) (1 - 1-dose 75+ series) 05/30/2066Meningococcal conjugate valent 4 (MCV4)Aged Out10/10/2007No longer eligible based on patient's age to complete this topicPneumococcal 0-49Completed 02/18/2022Influenza KgszzthXbakugjum57/13/2025, 11/18/2023, 02/18/2022, Additional history existsRSV Immunization (<20 months)Aged OutNo longer eligible based on patient's age to complete this topic Goals GoalPatient Goal TypeAssociated ProblemsRecent ProgressPatient-Stated?Author Blood Pressure < 140/90 Blood Rrlezdcg437/67(01/18/2025 8:20 PM EST)Nasrin Beltre MD Increase physical activity Lifestyle HabitsNoWarrenElizabeth hillsith Eat breakfast Lifestyle HabitsNoAyah Eli LDL, CALCULATED < 100 Result Sxkjsdeqy522(09/27/2023 7:39 AM EDT)Nasrin Beltre MD CREATININE < 1.3 Result Component.92(02/07/2025 2:09 PM EST)Nasrin Beltre MD Exercising Regularly Self-ManagementNoNasrin Bustamante MD Patient has no barriers to completing goals Self-ManagementNasrin Beltre MD Patient increasing knowledge of chronic disease(s) Self-ManagementOn track(12/02/2014 11:25 AM EDT)Nasrin Beltre MD Tobacco cessation (or no tobacco) Self-ManagementOn track(12/02/2014 11:25 AM EDT)Nasrin Beltre MD Patient working to improve diet Self-ManagementNoNasrin Bustamante MD Patient is monitoring Blood Pressure weekly Self-ManagementNoNasrin Bustamante MD Procedures Procedure NamePriorityDate/TimeAssociated DiagnosisCommentsPOCT GONADOT HCG TFWZNRUWKSFXzstzcv08/14/2025 7:12 PM EST CULTURE BGDMSZSRX84/14/2025 7:06 PM EST URINALYSIS WITH REFLEX TO MICROSCOPIC AND YJTWFOGYIEN87/14/2025 7:[address] HEAD WO GKPECGRRPASO38/14/2025 6:52 PM EST CYTOLOGY OHASrzjlfz06/22/2016 9:32 AM EDT Encounter for routine gynecological examination from Last 3 Months or Most Recently Relevant to Health Maintenance Results * POCT GONADOT HCG QUALITATIVE (01/18/2025 7:12 PM EST)ComponentValueRef Range Test MethodAnalysis TimePerformed AtPathologist SignatureHCG,POC URINENEGATIVE NEGATIVECENTRAL RECEIVING GSSpecimen (Source)Anatomical Location / Laterality Collection Method / VolumeCollection TimeReceived Time01/18/2025 7:12 PM EST 01/18/2025 7:13 PM EST Narrative Authorizing ProviderResult TypeResult StatusGregory Perez MDPOCT ORDERABLES - DEVICEFinal ResultPerforming OrganizationAddressCity/State/ZIP CodePhone Number [facility] [id number] [place] [address] CENTRAL RECEIVING GS [address] [place] [address] * Culture Urine (01/18/2025 7:06 PM EST)ComponentValueRef RangeTest Method Analysis TimePerformed AtPathologist SignatureSPECIMEN DESCRIPTIONUrine, Clean CatchMICROBIOLOGY GSHSPECIMEN DESCRIPTIONTested at [facility] [address] [address]NHSJEBBTNNQH GSHSPECIMEN TYPEUrineMICROBIOLOGY GSH SPECIMEN TYPETested at [place] [address] [facility] [address] MICROBIOLOGY GSHCULTURE RESULTSMultiple bacterial species isolated from urine consistent with urogenital commensal organisms.CHEMISTRY HEMATOLOGYMICRONOTE Tested at: [facility], [address] [place], [place] [address]CHEMISTRY HEMATOLOGYREPORT UAHSUU8301/20/2025 FINAL REPORTCHEMISTRY HEMATOLOGYSpecimen (Source)Anatomical Location / LateralityCollection Method / VolumeCollection TimeReceived TimeUrineURINE SPECIMEN OBTAINED BY CLEAN CATCH PROCEDURE / Apxcvud0301/18/2025 7:06 PM EST01/18/2025 7:11 PM EST Narrative Authorizing ProviderResult TypeResult StatusAna María DENNY-CMICROBIOLOGY - GENERAL ORDERABLESFinal ResultPerforming OrganizationAddressCity/State/ZIP CodePhone Number [facility] [address] [place] [address] MICROBIOLOGY GSH [address] [place] [phone] CHEMISTRY HEMATOLOGY [address] [place] [address] * (ABNORMAL) Urinalysis with Reflex to Microscopic and Culture (01/18/2025 7:06 PM EST)ComponentValueRef RangeTest MethodAnalysis TimePerformed AtPathologist SignatureUA SPECIMEN SOURCEUrine, Clean CatchCENTRAL RECEIVING GSURINE TYPE UrineCENTRAL RECEIVING GSCOLORYellowYellowCHEMISTRY HEMATOLOGYAPPEARANCE, URINETURBID(A)ClearCHEMISTRY HEMATOLOGYPH, URINE6.05.0 - 8.0CHEMISTRY HEMATOLOGYSPEC. GRAVITY, URINE1.0211.005 - 1.029CHEMISTRY HEMATOLOGYPROTEIN, URINE1+ (30-70 mg/dL)(A)NEGATIVECHEMISTRY HEMATOLOGYGLUCOSE, URINENEGATIVE NEGATIVECHEMISTRY HEMATOLOGYKETONE, URINETrace(A)NEGATIVECHEMISTRY HEMATOLOGY BILIRUBIN, URINENEGATIVENEGATIVECHEMISTRY HEMATOLOGYBLOOD, URINENEGATIVE NEGATIVECHEMISTRY HEMATOLOGYUROBILINOGEN, URINENORMALNORMAL mg/dLCHEMISTRY HEMATOLOGYNITRITE, URINENEGATIVENEGATIVECHEMISTRY HEMATOLOGYLEUKOCYTE ESTERASE, URINE3+ (250 Eduarda/uL)(A)NEGATIVECHEMISTRY HEMATOLOGYRBC, URINE6 to 10 (A)<6 /HPFCHEMISTRY HEMATOLOGYWBC, URINE21 to 50(A)<6 /HPFCHEMISTRY HEMATOLOGY SQUAMOUS EPI CELLS>20/HPFCHEMISTRY HEMATOLOGYBACTERIAMANY(A)NONE /HPFCHEMISTRY HEMATOLOGYYEASTPRESENTCHEMISTRY HEMATOLOGYMUCUSPRESENTCHEMISTRY HEMATOLOGY Comment:Tested at [place] [id number] (Source)Anatomical Location / LateralityCollection Method / VolumeCollection TimeReceived Time01/18/2025 7:06 PM EST01/18/2025 7:11 PM EST Narrative Authorizing ProviderResult TypeResult StatusAna María GUTIÉRREZ ORDERABLES NO PERFinal ResultPerforming OrganizationAddressCity/State/ZIP Code Phone Number [facility] [address] [place] [address] [address] CHEMISTRY HEMATOLOGY [address] [place] [address] * CT HEAD WO CONTRAST (01/18/2025 6:52 PM EST)Anatomical RegionLaterality ModalityBrainComputed TomographySpecimen (Source)Anatomical Location / LateralityCollection Method / VolumeCollection TimeReceived Time01/18/2025 7:00 PM EST Impressions 01/18/2025 7:00 PM EST No acute intracranial abnormality. Narrative 01/18/2025 7:00 PM EST HISTORY: Head trauma, moderate-severe COMPARISON: ??04/13/[address] TECHNIQUE: ??Noncontrast multiplanar CT images of the head NOTE: ??If there are questions about the content of this report, please contact [facility] radiologyby calling [phone] FINDINGS: BRAIN PARENCHYMA: No intra or extra-axial mass or hemorrhage. ??Jones-white differentiation intact. VENTRICLES/SULCI: No midline shift. No hydrocephalus. EXTRA-AXIAL SPACES: Unremarkable. PARANASAL SINUSES/MASTOIDS: Paranasal sinuses clear. Mastoid air cells clear. BONES: ??No fracture. OTHER: None Procedure Note Gabriel Brandt MD - 01/18/2025 HISTORY: Head trauma, moderate-severe COMPARISON: 04/13/[address] TECHNIQUE: Noncontrast multiplanar CT images of the head NOTE: If there are questions about the content of this report, pleasecontact [facility] radiology by calling [phone] FINDINGS: BRAIN PARENCHYMA: No intra or extra-axial mass or hemorrhage. Jones-white differentiation intact. VENTRICLES/SULCI: No midline shift. No hydrocephalus. EXTRA-AXIAL SPACES: Unremarkable. PARANASAL SINUSES/MASTOIDS: Paranasal sinuses clear. Mastoid air cellsclear. BONES: No fracture. OTHER: None IMPRESSION No acute intracranial abnormality. Authorizing ProviderResult TypeResult StatusAna María DENNY-CCTFinal Result * CYTOLOGY WHEELMAN (05/27/2015 9:32 AM EDT)ComponentValueRef RangeTest Method Analysis TimePerformed AtPathologist SignatureCYTOLOGY-GYNCYTOLOGY GYNECOLOGICAL REPORT Name: RAVINDER CANNON EPI#: [id number] Case #: [id number] Final Cytologic Diagnosis A. ??Cervical/Endocervical thinprep pap: Adequacy: ? Satisfactory for evaluation, endocervical transformation zone component present. Interpretation: ? Negative for intraepithelial lesion or malignancy. ?? This specimen has been analyzed by the ThinPrep Imaging System ([employer].), an automated imaging and review system, which assists the new car salesperson and/or pathologist in evaluation of cells on Thinprep Pap tests. Electronically Signed Out By Daylin RUEDA(ASCP) Source of Specimen(s) A: Cervical/Endocervical thinprep pap Clinical History Menstrual History: Not stated Signed out at [facility], [address] [place] [address] ??[id number] [facility] Non-Formatted Report [facility] LABORATORYSpecimen (Source)Anatomical Location / LateralityCollection Method / VolumeCollection TimeReceived Time05/27/2015 9:32 AM EDT05/28/2015 9:46 AM EDTComment:CERVICAL/ENDOCERVICAL THINPREP PAP Narrative Authorizing ProviderResult TypeResult StatusKim White CNPPATHOLOGY/CYTOLOGY ORDERABLESFinal ResultPerforming OrganizationAddressCity/State/ZIP CodePhone Number [facility] [address] [place] [phone] from Last 3 Months or Most Recently Relevant to Health Maintenance Insurance * Guarantor: Ravinder Cannon TypeRelation to PatientDate of PhoneBilling AddressPersonal/SchohgAree04/26/1991 HOMELESS ATTN: [facility] [place] [address] * Guarantor: Ravinder Cannon TypeRelation to PatientDate of PhoneBilling AddressPersonal/OqhzllHwsq89/26/1991 HOMELESS ATTN: [facility] [place] [address] Advance Directives * Full Code (Latest Code Status on File) Date ActivatedDate InactivatedComments08/20/2015 11:32 PM08/26/2015 4:11 PM * Full Code Date ActivatedDate InactivatedComments07/18/2015 12:35 AM07/19/2015 2:40 PM * Full Code Date ActivatedDate InactivatedComments06/11/2015 10:52 PM06/25/2015 1:31 PM * Full Code Date ActivatedDate InactivatedComments04/25/2015 6:08 PM2 7:52 PM * Full Code Date ActivatedDate InactivatedComments03/11/2015 10:43 PM03/14/2015 9:04 PM Care Teams Team MemberRelationshipSpecialtyStart DateEnd Date Derick Padgett MD PCP - GeneralInternal Medicine03/14/22 Nasrin Bustamante MD Internal Medicine04/14/13
--- OUTSIDE RECORDS SUMMARY | 2025-02-09 13:40 | XMS_ITS | Encounter Summary ---
Author Organization [facility] Address [address] [place] [address] Care Team Providers Care Discharging Machine Operator Name Role Phone Derick Padgett MD Primary Care Provider Mitchel Vick MA Unavailable Unavailable Source Comments This information has been disclosed to you from confidential records protectfrom disclosure by state law. You shall make no further disclosure of thisinformation without the specific, written, and informed release of theindividual to whom it pertains, or as otherwise permitted by law. A generalauthorization for the release of medical or other information is not sufficientfor the purposes of the release of HIV test results or diagnoses. [id number] Encounter Details DateTypeDepartmentCare Team (Latest Contact Info)Jcjetirfyxu28/01/2025Chart Note [facility] at [address] [place] [address] [place] [address] Pauly Sewell, WILFREDO [address] [facility], [address] [place] [address] Care plan updated Social History Tobacco UseTypesPacks/DayYears UsedDateSmoking Tobacco: FormerCigarettes0.37.6 02/28/2007 - 02/29/2012Smokeless Tobacco: NeverAlcohol UseStandard Drinks/Week CommentsNot Currently0 (1 standard drink = 0.6 oz pure alcohol)[id number] Health LiteracyAnswerDate RecordedHow often do you need to have someone help you when you read instructions, pamphlets, or other written material from your doctor or pharmacy?Mxtnspvkp03/07/2024Social Connection and Isolation Panel AnswerDate RecordedIn a typical week, how many times do you talk on the phone with family, friends, or neighbors?More than three times a week12/12/2023How often do you get together with friends or relatives?Twice a week12/12/2023How often do you attend oriental orthodox or amish services?Never12/12/2023o you belong to any clubs or organizations such as oriental orthodox groups, unions, fraternal or athletic groups, or school groups?No12/12/2023How often do you attend meetings of the clubs or organizations you belong to?Never12/12/2023re you , , , , never , or living with a partner?Never 12/12/2023UDIT-CAnswerDate RecordedQ1: How often do you have a drink containing alcohol?Never01/15/2025Q2: How many drinks containing alcohol do you have on a typical day when you are drinking?Patient does not drink01/15/2025Q3: How often do you have six or more drinks on one occasion?Never01/15/2025Overall Financial Resource Strain (CARDIA)AnswerDate RecordedHow hard is it for you to pay for the very basics like food, housing, medical care, and heating?Very hard12/12/2023 PHQ-2AnswerDate RecordedPHQ-2 Total Ngqch460Finbrigham city community hospital [place] of Occup[facility] - Occupational Stress QuestionnaireAnswerDate RecordedDo you feel stress - tense, restless, nervous, or anxious, or unable to sleep at night because yourmind is troubled all the time - these days?Very much12/12/2023 Exercise Vital SignAnswerDate RecordedOn average, how many days per week do you engage in moderate to strenuous exercise (like a brisk walk)?0 days12/12/2023On average, how many minutes do you engage in exercise at this level?0 min 12/12/2023Hunger Vital SignAnswerDate RecordedWithin the past 12 months, you worried that your food would run out before you got the money to buymore.Never true11/11/2024Within the past 12 months, the food you bought just didn't last and you didn't have money to get more.Never true11/11/2024PRAPARE - TransportationAnswerDate RecordedIn the past 12 months, has lack of transportation kept you from medical appointments or from getting medications?No 11/11/2024In the past 12 months, has lack of transportation kept you from meetings, work, or from getting things needed for daily living?No11/11/2024 Housing Stability Vital SignAnswerDate RecordedIn the last 12 months, was there a time when you were not able to pay the mortgage or rent on time?No11/11/2024In the past 12 months, how many times have you moved where you were living?0 11/11/2024t any time in the past 12 months, were you homeless or living in a long-term (including now)?No11/11/2024Hunger Vital SignAnswerDate RecordedWithin the past 12 months, you worried that your food would run out before you got the money to buymore.Never true01/15/2025Within the past 12 months, the food you bought just didn't last and you didn't have money to get more.Never true 01/15/2025PRAPARE - TransportationAnswerDate RecordedIn the past 12 months, has lack of transportation kept you from medical appointments or from getting medications?No01/15/2025In the past 12 months, has lack of transportation kept you from meetings, work, or from getting things needed for daily living?No 01/15/2025Housing Stability Vital SignAnswerDate RecordedIn the last 12 months, was there a time when you were not able to pay the mortgage or rent on time?No 01/15/2025In the past 12 months, how many times have you moved where you were living?t any time in the past 12 months, were you homeless or living in a long-term (including now)?No01/15/2025UtilitiesAnswerDate RecordedIn the past 12 months has the [employer], gas, oil, or water [employer] threatened to shut off services in your home?No01/15/2025early QuestionnaireAnswerDate RecordedDo you need any assistance with obtaining housing, meals, medication, transportation or medical equipment?09/20/2024ssistance needed for:Not on filely QuestionnaireAnswerDate RecordedDo you need any assistance with obtaining housing, meals, medication, transportation or medical equipment?09/20/2024 Assistance needed for:Not on file09/20/2024early QuestionnaireAnswerDate RecordedDo you need any assistance with obtaining housing, meals, medication, transportation or medical equipment?09/20/2024ssistance needed for:Not on file09/20/2024CommentsNoSex and Gender InformationValueDate RecordedSex Assigned at AbljiTlrveq73/15/2019 7:03 AM EDTLegal JoaRzvwdf58/13/2014 3:48 PM EDTGender WydlaavrSuryeh30/15/2019 7:03 AM EDTSexual OrientationStraight 12/19/2018 7:03 AM EDTdocumented as of this encounter Progress Notes * Pauly Sewell APRN - 02/04/2025 9:20 AM EST Care plan updated documented in this encounter Plan of Treatment Not on file documented as of this encounter Visit Diagnoses Not on filedocumented in this encounter Additional Health Concerns Active ProblemsNoted DateDiagnosed DateRN: HOSPITAL ETWDTLVSOVU50/19/2024RN: HEALTH MANAGEMENT RELATED TO COMPLEX WJBVVOAMED94/29/2024Financial Insecurity (Food, Medications, Household Bills)12/12/2023ssessmentNoted TimePHQ-9 Depression Total Score: 8006/17/2023 3:36 PM EDTA Body Mass Index follow-up plan has been documented for the uufldhe4506/14/2022 12:49 PM EDTdocumented as of this encounter Care Teams Team MemberRelationshipSpecialtyStart DateEnd Date Derick Padgett MD PCP - GeneralInternal Medicine11/10/24 Mitchel Vick MA Weight Loss Support11/01/24documented as of this encounter
--- NOTE | 2025-02-09 13:41 | ED_ITS ---
HPI HPI - General Adult General Chief complaint: Seizure Stated complaint: WEAKNESS Time Seen by Provider: 02/09/25 13:27 Source: patient Mode of arrival: ambulance Limitations: no limitations History of Present Illness HPI narrative: 34-year-old female presented to the emergency department after reportedly having had a seizure. She states she has a history of seizures and is on medications for that, Keppra and Lamictal. She states she had 5 seizures yesterday and was seen at another hospital. She states they did not run any tests on her and she states they did not do any blood test. She is at a drug rehab center and is going through oxycodone detoxification. Related Data Allergies Allergy/AdvReac Type Severity Reaction Status Date / Time latex Allergy Severe Anaphylaxis Verified 02/09/25 13:30 metoclopramide (From Reglan) Allergy Severe Anxiety Verified 02/09/25 13:30 prednisolone Allergy Severe Hallucinati Verified 02/09/25 13:30 ng prochlorperazine (From Allergy Severe Anxiety Verified 02/09/25 13:30 Compazine) Review of Systems ROS Narrative A ten point review of systems is negative except as noted above. PFSH PFSH Social History Little interest or pleasure in doing things: not at all Feeling down, depressed, or hopeless: not at all Exam Narrative Exam Narrative: Nurses note and vital signs reviewed General:The patient appears well and in no apparent distress. Skin:Warm, dry, no pallor noted.There is no rash noted. Head:Normocephalic, atraumatic Eye: Normal conjunctiva, no drainage Ears, Nose, Mouth, and Throat: oral mucosa is moist. Nares patent. Cardiovascular:Regular Rate and Rhythm Respiratory:Patient is in no distress, no accessory muscle use, lungs are clear to auscultation, no wheezing, rales or rhonchi Back:non-tender GI: Soft and nontender Musculoskeletal: The patient has no evidence of calf tenderness, no pitting edema, symmetrical pulses noted bilaterally Neurological:A&O x4, normal speech; upper and lower extremity strength 5 out of 5 and symmetric Psychiatric:Cooperative Constitutional Vital Signs, click to edit/add: Last Vital Signs Temp 98.3 F 02/09/25 13:22 Pulse 75 02/09/25 15:30 Resp 18 02/09/25 15:30 BP 122/80 02/09/25 13:22 Pulse Ox 97 02/09/25 13:22 O2 Del Method Room Air 02/09/25 13:22 Course Vital Signs Vital signs: Vital Signs Temperature 98.3 F 02/09/25 13:22 Pulse Rate 87 02/09/25 13:22 Respiratory Rate 14 02/09/25 13:22 Blood Pressure 122/80 02/09/25 13:22 Pulse Oximetry 97 02/09/25 13:22 Oxygen Delivery Method Room Air 02/09/25 13:22 Temperature 98.3 F 02/09/25 13:22 Pulse Rate 75 02/09/25 15:30 Respiratory Rate 18 02/09/25 15:30 Blood Pressure 122/80 02/09/25 13:22 Pulse Oximetry 97 02/09/25 13:22 Oxygen Delivery Method Room Air 02/09/25 13:22 Medical Decision Making MDM Narrative Medical decision making narrative: Workup including CT brain is negative. I reviewed her records from yesterday's emergency department visit in [place]. The patient is released back to drug treatment [place]. My impression is that she has pseudoseizures. Differential Diagnosis Differential Diagnosis: Pseudoseizure, seizure Lab Data Lab results reviewed: Yes I reviewed the patient's lab results Labs: Lab Results 02/09/25 Range/Units 13:59 WBC 6.1 (4.0-11.0) 10^3/uL RBC 3.91 L (4.20-5.40) 10^6/uL Hgb 11.5 L (12.0-16.0) g/dL Hct 36.2 (36.0-48.0) % MCV 92.6 (81.0-99.0) fL MCH 29.4 (26.7-34.0) pg MCHC 31.8 (29.9-35.2) g/dL RDW 14.3 (11.0-15.0) % Plt Count 330 (150-450) 10^3/uL MPV 9.9 (9.5-13.5) fL Neut % (Auto) 59.3 (43.0-75.0) % Lymph % (Auto) 28.7 (20.5-60.0) % [place] % (Auto) 8.9 (1.7-12.0) % Eos % (Auto) 1.8 (0.9-7.0) % Baso % (Auto) 1.0 (0.2-2.0) % Neut # (Auto) 3.6 (1.4-6.5) 10^3/uL Lymph # (Auto) 1.7 (1.2-3.8) 10^3/uL [place] # (Auto) 0.5 (0.3-0.8) 10^3/uL Eos # (Auto) 0.1 (0.0-0.7) 10^3/uL Baso # (Auto) 0.1 (0.0-0.1) 10^3/uL Abs Immat Gran (auto) 0.02 (0.00-0.03) 10^3/uL Imm/Tot Granulo (auto) 0.3 (0.0-0.5) % Sodium 139 (136-145) mmol/L Potassium 3.9 (3.5-5.1) mmol/L Chloride 103 (98-107) mmol/L Carbon Dioxide 27.4 (21.0-32.0) mmol/L Anion Gap 12.5 BUN 9.0 (7.0-18.0) mg/dL Creatinine 0.86 (0.55-1.02) mg/dL Est GFR ( Amer) >60 (>=60 mL/min/1.73m^2) Est GFR (Non-Af Amer) >60 (>=60 mL/min/1.73m^2) BUN/Creatinine Ratio 10.5 Glucose 86 (74-106) mg/dL Calcium 9.1 (8.5-10.1) mg/dL Serum HCG, Qual Negative (NEGATIVE) Ethanol Quant <3 mg/dL Imaging Data CT scan - head: Radiologist's impression: ITS Impressions Head CT 02/09/25 13:32 IMPRESSION: NO ACUTE INTRACRANIAL ABNORMALITY. Impression dictated by: Seun Eduardo M.D. 02/09/2025 3:41 PM Dictation Location: [place] [address] Electronically authenticated by: [id number] Y Date: 02/09/2025 15:41 ECG Data Attestation: I personally reviewed and interpreted this ECG as follows: (EKG my interpretation shows sinus rhythm with rate of 82 and no acute change) Discharge Plan Discharge Chief Complaint: Seizure Clinical Impression: Seizure disorder Patient Disposition: Home, Self-Care Time of Disposition Decision: 16:06 Condition: Good Mode of Transportation: Private Vehicle Print Language: Upper Sorbian Instructions: Recurrent Seizures in Adults (ED) Referrals: Physician,Non-Staff, MD [Primary Care Provider] - 1 week
--- OUTSIDE RECORDS SUMMARY | 2025-02-09 13:41 | XMS_ITS | Encounter Summary ---
Author Organization [facility] Address [facility] [id number] [address] [place] [address] Care Team Providers Care [place] Mill Operator Name Role Phone Derick Padgett MD Primary Care Provider Encounter Details DateTypeDepartmentCare Team (Latest Contact Info)Rjpdwpvxsoy57/05/2025Travel Social History Tobacco UseTypesPacks/DayYears UsedDateSmoking Tobacco: NeverSmokeless Tobacco: NeverHunger ScreeningAnswerDate RecordedWithin the past 12 months we worried whether our food would run out before we got money to buy more.Never True 02/08/2025Within the past 12 months the food we bought just didn't last and we didn't have money to get more.Never True02/08/2025CommentsNoSex and Gender InformationValueDate RecordedSex Assigned at BirthNot on fileLegal Sex Bwfwvc2202/07/2025 1:35 PM ESTGender IdentityNot on fileSexual OrientationNot on filedocumented as of this encounter Plan of Treatment Not on file documented as of this encounter Visit Diagnoses Not on filedocumented in this encounter Care Teams Team MemberRelationshipSpecialtyStart DateEnd Date Derick Padgett MD [address] [address] PCP - GeneralInternal Vyvroyzb30/4/25documented as of this encounter
--- OUTSIDE RECORDS SUMMARY | 2025-02-09 13:41 | XMS_ITS | Clinical Summary ---
Author Organization IWTs tem Address [id number] [address] [place] [address] Care Team Providers Care Security Solutions Architect Name Role Phone Derick Padgett MD Primary Care Provider Allergies Active AllergyReactionsCriticalityNoted WgsdUrsfbnpxYqxsupslkyotqrko19/04/2025 Latex02/07/20253979Otnlxybjyi28/04/2025Metoclopramide Hcl02/07/2025 Medications MedicationSigDispense QuantityRefillsLast FilledStart DateEnd DateStatus albuterol (PROVENTIL HFA;VENTOLIN HFA) 90 mcg/actuation inhaler Inhale 2 puffs every 6 (six) hours as needed for wheezing.Active loratadine (CLARITIN REDITABS) 10 mg disintegrating tablet Dissolve 1 tablet (10 mg total) on tongue in the morning.Active famotidine (PEPCID) 20 mg tablet Take 1 tablet (20 mg total) by mouth in the morning and 1 tablet (20 mg total) before bedtime.Active biotin 10,000 mcg capsule Take by mouth.Active mometasone-formoterol (DULERA) 200-5 mcg/actuation inhaler Inhale 2 puffs in the morning and 2 puffs before bedtime.Active eletriptan (RELPAX) 40 mg tablet Take 1 tablet (40 mg total) by mouth once as needed for migraine. May repeat in 2 hours if unresolved. Do not exceed 80 mg in 24 hours.Active hydrOXYzine (ATARAX) 25 mg tablet Take 1 tablet (25 mg total) by mouth 3 (three) times a day as needed for itching.Active levETIRAcetam (KEPPRA) 500 mg tablet Take 1 tablet (500 mg total) by mouth in the morning and 1 tablet (500 mg total) before bedtime.Active memantine (NAMENDA) 10 mg tablet Take 1 tablet (10 mg total) by mouth in the morning and 1 tablet (10 mg total) before bedtime.Active metoprolol tartrate (LOPRESSOR) 25 mg tablet Take 1 tablet (25 mg total) by mouth in the morning.Active omeprazole (PriLOSEC) 40 mg capsule Take 1 capsule (40 mg total) by mouth in the morning.Active OXcarbazepine (TRILEPTAL) 300 mg tablet Take 1 tablet (300 mg total) by mouth in the morning and 1 tablet (300 mg total) before bedtime.Active potassium chloride (KLOR-CON SPRINKLE) 10 MEQ CR capsule Take by mouth in the morning and before bedtime.Active prazosin (MINIPRESS) 2 mg capsule Take 1 capsule (2 mg total) by mouth nightly.Active QUEtiapine (SEROquel) 100 mg tablet Take 1 tablet (100 mg total) by mouth nightly.Active sertraline (ZOLOFT) 100 mg tablet Take 1 tablet (100 mg total) by mouth in the morning.Active Encounters DateTypeDepartmentCare VycdDgqfyjjrgda70/05/2025 10:31 PM EST - 02/08/2025 11:22 PM [facility] [address] [place] [phone] Claudette Oliveros, DO Anxiety (Primary Dx); Seizure with normal neurologic examination ([facility]) Discharge Disposition: Home02/08/20254449Rkxdue57/04/2025 1:39 PM EST - 02/07/2025 3:57 PM [facility] [address] [place] [phone] Tonny Coelho DO Breakthrough seizure ([facility]) (Primary Dx) Discharge Disposition: Home02/07/2025Travelfrom Last 3 Months Social History Tobacco UseTypesPacks/DayYears UsedDateSmoking Tobacco: NeverSmokeless [...] ESTGender IdentityNot on fileSexual OrientationNot on file Last Filed Vital Signs Vital SignReadingTime TakenCommentsBlood Fvegkctt206/8902/08/2025 11:12 PM EST Mtdyv873202/08/2025 11:12 PM INZDxufsfcpzmo36.9 ??C (98.5 ??F)02/08/2025 10:17 PM ESTRespiratory Dygt278304/11/2024 11:12 PM ESTOxygen Vbwaefgxjo43%02/08/2025 11:12 PM ESTInhaled Oxygen Concentration--Iudvvq753.7 kg (275 lb)02/08/2025 10:17 PM DWGOlclis975.6 cm (5' 4 )02/08/2025 10:17 PM ESTBody Mass Index47. 10:17 PM EST Plan of Treatment Health MaintenanceDue DateLast DoneCommentsDepression Kaqzisuce56/26/2004Adult BMI Follow Up Plan05/30/2009Pap Smear05/30/2012COVID-19 Vaccine ( season)/10/2020, 1DTaP,Tdap and Td Vaccines (9 - Td or Tdap)/06/2014, 11/11/2009, 06/25/2002, Additional history exists Adult BMI Hpspiwvhp20Tobacco Ubawfrpbk44 Influenza SpbjvfbTdplatwrd11/13/2025, 11/18/2023, 02/18/2022, Additional history exists Medical Devices Not on file Procedures Procedure NamePriorityDate/TimeAssociated DiagnosisCommentsDRUG SCREEN, URINE STAT104/10/2024 2:52 PM EST ER EXTRA URINE EOTANRQRUO66/04/2025 2:52 PM EST ER EXTRA URINE LXGWQHUTKZI41/04/2025 2:52 PM EST ER EXTRA LIWQDQBBN44/04/2025 2:52 PM EST POCT , URINE (NUCG)Tcnuscb4902/07/2025 2:29 PM EST POCT NURSING URINE MACROSCOPIC AXTjbpurn32/04/2025 2:27 PM EST LIPASESTAT Add-on02/07/2025 2:09 PM EST KRWSHYXDLHSEM79/04/2025 2:09 PM EST LACTATE W/ PYYCMHHESI15/04/2025 2:09 PM EST COMPREHENSIVE METABOLIC QXJYKXOJL30/04/2025 2:09 PM EST CBC WITH AUTO GXMYQPAXNZRVWSSH53/04/2025 2:09 PM EST from Last 3 Months Results * Extra Urine Dwight (02/07/2025 2:52 PM EST)ComponentValueRef RangeTest Method Analysis TimePerformed AtPathologist SignatureExtra TubeAuto Resulted 02/07/2025 4:02 PM ESTPROMEDICA SAINT AGNES MEDICAL CENTERpecimen (Source) Anatomical Location / LateralityCollection Method / VolumeCollection Time Received TimeUrineUrine specimen collection, clean catch / Wvenfjc0002/07/2025 2:52 PM EST02/07/2025 3:00 PM EST Narrative Authorizing ProviderResult TypeResult StatusAmber Delgado STORE MANAGEMENT TRAINEE-CNPURINE ORDERABLESFinal ResultPerforming OrganizationAddressCity/State/ZIP CodePhone Number [facility] [address] [place] [address], * Extra Urine Culture (02/07/2025 2:52 PM EST)ComponentValueRef RangeTest Method Analysis TimePerformed AtPathologist SignatureExtra TubeAuto Resulted 02/07/2025 4:02 PM ESTUniversity [facility]als [facility] (Source) Anatomical Location / LateralityCollection Method / VolumeCollection Time Received TimeUrineUrine specimen collection, clean catch / Ruhmzot6502/07/2025 2:52 PM EST02/07/2025 3:00 PM EST Narrative Authorizing ProviderResult TypeResult StatusAmber Danny STORE MANAGEMENT TRAINEE-CNPURINE ORDERABLESFinal ResultPerforming [facility]okeAddNew Lifec[facility] - Suburbanty/State/ZIP CodePhone Number [address] [address], * Extra Urine (02/07/2025 2:52 PM EST)ComponentValueRef RangeTest MethodAnalysis TimePerformed AtPathologist SignatureExtra TubeAuto Bjvtkxrv36/04/2025 4:02 PM [facility] (Source)Anatomical Location / LateralityCollection Method / VolumeCollection TimeReceived TimeUrineUrine specimen collection, clean catch / Ybjvcbz3902/07/2025 2:52 PM EST02/07/2025 3:00 PM EST Narrative Authorizing ProviderResult TypeResult StatusAmber Danny BURRISN-CNPURINE ORDERABLESFinal ResultPerforming OrganizationAddWashington Health System/State/ZIP CodePhone Number [address] [address], * Drug Screen, Urine (02/07/2025 2:52 PM EST)ComponentValueRef RangeTest Method Analysis TimePerformed AtPathologist SignatureAMPHETAMINE/METHAMPNegative Tecjnkuc79/04/2025 5:28 PM [facility]: AMPH/METH screening cut off = 1000 ng/mLCOCAINE METABOLITENegativeNegative 02/07/2025 5:28 PM [facility]Comment:Cocaine screening cut off value = 300 ng/uAQNNLCVGLttcxxoqQhspvqbe88/04/2025 5:28 PM [facility]Comment:Ecstasy screening cut off value = 500 ng/lTNEUFAFRUEUngbqcidRdbwviwg23/04/2025 5:28 PM [facility]Comment:Methadone screening cut off value = 300 ng/mL.Opiates WkxsnwsrOqnltqmn41/04/2025 5:28 PM [facility] Comment: Opiates screening cut off value = 300 ng/mL This test is used for the detection of codeine, hydrocodone (>1000 ng/mL), morphine and hydromorphone (>900 ng/mL) in urine. MDQHSRQBIEcmgyzylRkohshta79/04/2025 5:28 PM [facility]ITALComment: Oxycodone screening cut off value = 300 ng/mL This test is used for the detection of oxycodone and oxymorphone in urine. TIQAQPJZKDDWMRxygvgwmWuqhvmir26/04/2025 5:28 PM [facility]Comment:Phencyclidine screening cut off value = 25 ng/mLCANNABINOIDS TdvasnenNkrhckfb24/04/2025 5:28 PM [facility] Comment:Cannabinoids/THC screening cut off value = 50 ng/mLUrine Barbiturates DfasdldmSbwhvird15/04/2025 5:28 PM [facility] Comment:Barbiturates screening cut off value = 200 ng/mLBENZODIAZEPINESNegative Nnxojxhx98/04/2025 5:28 PM [facility]Comment: Benzodiazepines screening cut off value = 200 ng/mLSpecimen (Source)Anatomical Location / LateralityCollection Method / VolumeCollection TimeReceived TimeUrine 02/07/2025 2:52 PM EST02/07/2025 5:07 PM EST Narrative Authorizing ProviderResult TypeResult StatusAmber Danny STORE MANAGEMENT TRAINEE-CNPURINE ORDERABLESFinal ResultPerforming OrganizationAddressCity/State/ZIP CodePhone Number [facility] [address] [place] [address], * POCT , urine (02/07/2025 2:29 PM EST)ComponentValueRef RangeTest MethodAnalysis TimePerformed AtPathologist SignaturePOC Urine NegativeNegative, Kjvcdtvcmlcpq51/04/2025 2:35 PM [facility]ENTERpecimen (Source)Anatomical Location / LateralityCollection Method / VolumeCollection TimeReceived WmpmImquv88/04/2025 2:29 PM EST 02/07/2025 2:35 PM EST Narrative Authorizing ProviderResult TypeResult StatusPOINT OF CARE TEST ORDERABLESFinal ResultPerforming OrganizationAddressCity/State/ZIP CodePhone Number [facility] [address] [place] [address], [place] * (ABNORMAL) POCT Nursing Urine Macroscopic UA (02/07/2025 2:27 PM EST)Component ValueRef RangeTest MethodAnalysis TimePerformed AtPathologist [facility] Urine Specific Gravity1.0201.010, 1.015, 1.020, 1.5077802/07/2025 2:29 PM EST [facility] Urine Leukocyte EsteraseNegative Ijypuarn45/04/2025 2:29 PM ESTSELECT [facility] Urine ThnxnsuVemcfnffDehnrwja65/04/2025 2:29 PM [facility]PROALAM[facility] Urine pH6.05.0, 6.0, 6.5, 7.0, 7.5, 8.0, 8.5, 5.512 2:29 PM ESTPROALAMEDA [facility]PITAL Urine ProteinTrace(A)Negative 02/07/2025 2:29 PM ESTPROALAMEDA [facility] Urine Glucose HfadbczoGektciqi06/04/2025 2:29 PM [facility]PROAL[facility] Urine KetonesTrace(A)Shpvjdlg82/04/2025 2:29 PM ESTPROALAMEDA [facility] Urine Urobilinogen0.2 E.U./dL02/07/2025 2:29 PM [facility]PROAL[facility]ED[facility] Urine BilirubinSmall(A)Bfkxjvdo96/04/2025 2:29 PM ESTPROALAMEDA [facility] Urine Blood/HGBTrace(A)Negative 02/07/2025 2:29 PM ESTPROJOHN MUIR WALNUT CREEK MEDICAL CENTERpecimen (Source) Anatomical Location / LateralityCollection Method / VolumeCollection Time Received GimrNsvxp44/04/2025 2:27 PM EST02/07/2025 2:29 PM EST Narrative Authorizing ProviderResult TypeResult StatusPOINT OF CARE TEST ORDERABLESFinal ResultPerforming OrganizationAddressCity/State/ZIP CodePhone Number [address] [address], [place] * Lactate w/ Reflex (02/07/2025 2:09 PM EST)ComponentValueRef RangeTest Method Analysis TimePerformed AtPathologist SignatureLACTATE W/REFLEX1.30.4 - 2.0 mmol/L104/10/2024 2:41 PM ESTPREMIER HEALTH MIAMI VALLEY [facility]PITAL NORTHpecimen (Source)Anatomical Location / LateralityCollection Method / VolumeCollection TimeReceived TimeBloodVenous blood / UnknownVenipuncture / Fveaqrz5102/07/2025 2:09 PM EST02/07/2025 2:20 PM EST Narrative [facility] - 02/07/2025 2:41 PM EST Result did not trigger repeat Lactate, re-order if needed. Authorizing ProviderResult TypeResult StatusAmber Delgado STORE MANAGEMENT TRAINEE-CNPLAB BLOOD ORDERABLESFinal ResultPerforming OrganizationAddressCity/State/ZIP CodePhone Number [address] [place] [address], [place] * (ABNORMAL) CBC auto differential (02/07/2025 2:09 PM EST)ComponentValueRef RangeTest MethodAnalysis TimePerformed AtPathologist SignatureWBC5.74 - 11 10^9/L104/10/2024 2:31 PM [facility]OSPITALRBC Count3.95 3.8 - 5.2 10^12/L104/10/2024 2:31 PM [facility] Rfmkskhpwp34.3(L)11.7 - 15.5 g/dL02/07/2025 2:31 PM [facility]OSPITALHematocrit34.8(L)35 - 47 %02/07/2025 2:31 PM [facility]ITALMCV8880 - 100 fL02/07/2025 2:31 PM [facility]ITALMCH28.627 - 34 pg12/06/2024 2:31 PM ESTTRINITY HEALTH SYSTEMMCHC32.532 - 36 g/dL02/07/2025 2:31 PM ESTTRINITY HEALTH SYSTEMRDW15.011.5 - 15 %02/07/2025 2:31 PM [facility]OS[facility]ITALPlatelet Vibec940987 - 450 10^9/L104/10/2024 2:31 PM ESTTRINITY HEALTH SYSTEMMPV8.17 - 12 fL02/07/2025 2:31 PM EST [facility]OMKAIS[facility] CENTERNeutrophils %54.9%02/07/2025 2:31 PM EST [facility] SYSTEMLymphocytes %31.2%02/07/2025 2:31 PM EST [facility]KA[facility]ENTERMonocytes %10.8%02/07/2025 2:31 PM EST [facility] HOSPITALEosinophils %1.8%02/07/2025 2:31 PM EST [facility]KA[facility]ENTERBasophils %1.3%02/07/2025 2:31 PM EST [facility] SYSTEMNeutrophils Absolute (A)3.11.5 - 6.6 10^9/L 02/07/2025 2:31 PM ESTPROKAISER SAN LEANDRO MEDICAL CENTERLymphocytes Absolute 1.81.0 - 3.5 10^9/L104/10/2024 2:31 PM [facility] Monocytes Absolute0.60.0 - 0.9 10^9/L104/10/2024 2:31 PM ESTPROKAISER SAN LEANDRO MEDICAL CENTEREosinophils Absolute0.10.0 - 0.4 10^9/L12 2:31 PM EST [facility]KA[facility]ENTERBasophils Absolute0.10.0 - 0.2 10^9/L 02/07/2025 2:31 PM ESTTRINITY HEALTH SYSTEMDifferential Type AUTOMATED DCQMULNBRSLA74/04/2025 2:31 PM [facility]ENTERpecimen (Source)Anatomical Location / LateralityCollection Method / VolumeCollection TimeReceived TimeBloodVenous blood / UnknownVenipuncture / Gginbbh4502/07/2025 2:09 PM EST02/07/2025 2:20 PM EST Narrative Authorizing ProviderResult TypeResult StatusAmber Delgado STORE MANAGEMENT TRAINEE-CNPLAB BLOOD ORDERABLESFinal ResultPerforming OrganizationAddressCity/State/ZIP CodePhone Number [address] [place] [address], [place] * Magnesium (02/07/2025 2:09 PM EST)ComponentValueRef RangeTest MethodAnalysis TimePerformed AtPathologist SignatureMAGNESIUM1.91.8 - 2.6 mg/dL02/07/2025 2:42 PM ESTPROMEDISanger General Hospital (Source)Anatomical Location / LateralityCollection Method / VolumeCollection TimeReceived Time BloodVenous blood / UnknownVenipuncture / Hzgppnr3502/07/2025 2:09 PM EST 02/07/2025 2:20 PM EST Narrative Authorizing ProviderResult TypeResult StatusAmber Danny BURRISN-CNPLAB BLOOD ORDERABLESFinal ResultPerforming OrganizationAddressCity/State/ZIP CodePhone Number [address] [place] [address], [place] * Lipase (02/07/2025 2:09 PM EST)ComponentValueRef RangeTest MethodAnalysis Time Performed AtPathologist VapeqszzsGCZAEB8886 - 40 U/L104/10/2024 3:19 PM EST [facility] (Source)Anatomical Location / LateralityCollection Method / VolumeCollection TimeReceived TimeBloodVenous blood / UnknownVenipuncture / Tperbgy7802/07/2025 2:09 PM EST02/07/2025 2:20 PM EST Narrative Authorizing ProviderResult TypeResult StatusAmber Danny STORE MANAGEMENT TRAINEE-CNPLAB BLOOD ORDERABLESFinal ResultPerforming OrganizationAddressCity/State/ZIP CodePhone Number [address] [place] [address], [place] * (ABNORMAL) Comprehensive metabolic panel (02/07/2025 2:09 PM EST)Component ValueRef RangeTest MethodAnalysis TimePerformed AtPathologist SignatureSODIUM 841854 - 146 mmol/L104/10/2024 2:42 PM [facility] POTASSIUM3.93.5 - 5.0 mmol/L104/10/2024 2:42 PM [facility] HOSPITALCHLORIDE10298 - 109 mmol/L104/10/2024 2:42 PM [facility] HOSPITALCARBON TGAXTCG7544 - 32 mmol/L104/10/2024 2:42 PM ESTTRINITY HEALTH SYSTEMANION YPF445 - 15 mmol/L104/10/2024 2:42 PM EST [facility] SYSTEMBLOOD UREA TUKNOBUQ597 - 23 mg/dL02/07/2025 2:42 PM [facility] HOSPITALCREATININE0.920.40 - 1.00 mg/dL 02/07/2025 2:42 PM [facility]ITALComment:METHOD TRACEABLE TO IDMS EDDEMINSQWDYYCU5958 - 99 mg/dL02/07/2025 2:42 PM EST [facility] SYSTEMCALCIUM9.08.5 - 10.5 mg/dL02/07/2025 2:42 PM [facility]OSPITALTOTAL PROTEIN7.06.0 - 8.0 g/dL 02/07/2025 2:42 PM [facility] HOSPITALALBUMIN4.03.2 - 5.3 g/dL02/07/2025 2:42 PM [facility] HOSPITALALKALINE XNWSMOXVBXE4506 - 130 U/L104/10/2024 2:42 PM [facility]ITALAST28<=41 U/L104/10/2024 2:42 PM [facility] ALT32(H)<=31 U/L104/10/2024 2:42 PM [facility] BILIRUBIN,TOTAL0.50.3 - 1.2 mg/dL02/07/2025 2:42 PM [facility] HOSPITALEGFR Non-Race Pivzdbeuu05>=60 ml/min/1.73sq.m104/10/2024 2:42 PM [facility] HOSPITALComment: eGFR not reported due to non-numeric value for Creatinine. Reported eGFR is based on the CKD-EPI 2020 equation that does not use a race coefficient. Specimen (Source)Anatomical Location / LateralityCollection Method / Volume Collection TimeReceived TimeBloodVenous blood / UnknownVenipuncture / Unknown 02/07/2025 2:09 PM EST02/07/2025 2:20 PM EST Narrative Authorizing ProviderResult TypeResult StatusAmber Danny STORE MANAGEMENT TRAINEE-CNPLAB BLOOD ORDERABLESFinal ResultPerforming OrganizationAddressCity/State/ZIP CodePhone Number [facility] [address] [place] [address], [place] from Last 3 Months Insurance Care Teams Team MemberRelationshipSpecialtyStart DateEnd Derick Padgett MD [address] [place] [phone] PCP - GeneralInternal Enqpfsip78/4/25
--- OUTSIDE RECORDS SUMMARY | 2025-02-09 13:41 | XMS_ITS | Encounter Summary ---
Author Organization [facility] CenterSupportPay s tem Address [id number] [address] [place] [address] Care Team Providers Care Project Engineer Chemicals Name Role Phone Derick Padgett MD Primary Care Provider Encounter Details DateTypeDepartmentCare Team (Latest Contact Info)Qagtqkezbwe84/04/2025Travel Social History Tobacco UseTypesPacks/DayYears UsedDateSmoking Tobacco: Never [...] on file documented as of this encounter Plan of Treatment Not on file documented as of this encounter Visit Diagnoses Not on filedocumented in this encounter Care Teams Team MemberRelationshipSpecialtyStart DateEnd Date Derick Padgett MD [address] [place] [address] [phone] PCP - GeneralInternal Tcbdkrtm03/4/25documented as of this encounter
--- OUTSIDE RECORDS SUMMARY | 2025-02-09 13:41 | XMS_ITS | Clinical Summary ---
Author Organization [facility] Address [address] [place] [address] Phone Care Team Providers Care Display Associate Name Role Phone Alena Murdock MD Primary Care Provider [phone] Allergies Active AllergyReactionsCriticalityNoted DateCommentsProchlorperazine Edisylate QqowgzcEbsg77/25/7752Fdvimqwsyrubise51/19/8938Ignzo37/19/2015Prednisone 01/23/20152700XgiowhaffrznemHlofcidUizi68/25/2017 Medications * This document contains information received from the source organization and may not represent a complete record from that organization. MedicationSigDispense QuantityRefillsLast FilledStart DateEnd DateStatus sertraline (ZOLOFT) 100 mg Oral Tablet Take 200 mg by mouth daily.Active prazosin (MINIPRESS) 2 mg Oral Capsule Take 6 mg by mouth nightly.Active loratadine (CLARITIN) 10 mg Oral Tablet Take 10 mg by mouth daily.Active famotidine (PEPCID) 20 mg Oral Tablet Take 20 mg by mouth 2 times daily.Active QUEtiapine (SEROQUEL) 200 mg Oral Tablet Take 400 mg by mouth nightly. Takes 100mg in AM and afternoon.Active hydrOXYzine (ATARAX) 50 mg Oral Tablet Take 50 mg by mouth every 8 hours as needed for Anxiety.Active traZODone (DESYREL) 300 mg Oral Tablet Take 300 mg by mouth nightly.Active gabapentin (NEURONTIN) 300 mg Oral Capsule Take by mouth 3 times daily.Active ondansetron (ZOFRAN-ODT) 4 mg Oral Tablet, Rapid Dissolve Take 1 Tablet by mouth every 4 hours as needed for Nausea. 15 Tablet 11/19/2020ctive Active Problems ProblemNoted DateDiagnosed DateMajor depressive disorder, recurrent, severe with psychotic ycmeiqdj95/14/2021SV (respiratory syncytial virus infection) 11/14/2020Generalized anxiety qcduqiwf75/10/2021hronic post-traumatic stress disorder (PTSD)11/14/2020norexia nervosa, restricting type11/14/2020hronic back pain11/14/2020Neurogenic zadnylo6111/14/2020OTS (postural orthostatic tachycardia syndrome)02/22/2019Suicidal lupmyyxec59/17/2019Seasonal allergies 02/19/2019Uncomplicated ksbokz3002/19/2019Gastroesophageal reflux disease without mytkiafoloh28/16/2019Psychophysiological rqgisyyz63/05/7533Zvhsosyjn39/05/2019 Borderline personality ryutivap45/25/2017 Resolved Problems ProblemNoted DateDiagnosed DateResolved DateMajor depressive disorder, recurrent severe without psychotic mjzeqluq30/MDD (major depressive disorder), recurrent severe, without grirlxdrs85ncounter for other specified special qjbqakzcatma45hronic post-traumatic stress ibydrsrf55 Immunizations ImmunizationAdministration DatesNext DuePfizer SARS-CoV-2 Vaccine 12+ Yrs (Purple Cap)05/12/2020,04/20/2020 Surgical History SurgeryDateSite/LateralityCommentsKIDNEY SURGERY device attached to kidney and or bladder r/t neurogentic [place] GUIDED LUMBAR PUNCTURE DIAGNOSTIC03/09/2021 [place] GUIDED LUMBAR PUNCTURE DIAGNOSTIC 03/09/2021 Medical History Medical HistoryDateCommentsNeuropathyautonomic neuropathyAsthmaCOPD (chronic obstructive pulmonary disease) (HCC)Borderline personality disorder (HCC) AnorexiaBulimia (HCC)Neurogenic bladderinterstemHistory of esophagogastroduodenoscopy (EGD)Chronic post-traumatic stress jyzujulr04/02/2017 Bipolar disorder (HCC) Family History Medical HistoryRelationNameCommentsNo Known ProblemsBrotherHigh Blood Pressure FatherHigh Blood PressureMotherRelationNameStatusCommentsBrotherAliveFatherAlive MotherAliveSisterAlive Social History Tobacco UseTypesPacks/DayYears UsedDateSmoking Tobacco: FormerCigarettes Smokeless Tobacco: Never Comments:not currently Alcohol UseStandard Drinks/WeekCommentsYes0 (1 standard drink = 0.6 oz pure alcohol)occassionalSexually ActiveBirth ControlPartnersCommentsNot Currently CommentsNoSex and Gender InformationValueDate RecordedSex Assigned at BirthNot on fileLegal WogQdqlgd19/19/2015 4:58 PM ESTGender IdentityNot on file Sexual OrientationNot on file Obstetrics History GravidaParaTermPretermABIABSABEctopicMultipleLivingLive [id number] Last Filed Vital Signs Vital SignReadingTime TakenCommentsBlood Eaysivhx590/7909 1:18 PM EDT Ghhzj914111/19/2020 1:18 PM QTHNgjkwqopdui99.5 ??C (97.7 ??F)11/19/2020 1:18 PM EDTRespiratory Rteo738611/19/2020 1:18 PM EDTOxygen Ktccloombw07%11/19/2020 1:18 PM EDTInhaled Oxygen Concentration--Acrjhh86.7 kg (200 lb)11/19/2020 1:18 PM EDT Ifdmem143.6 cm (5' 4 )11/19/2020 1:18 PM EDTBody Mass Index34.3309 1:18 PM EDT Plan of Treatment Health MaintenanceDue DateLast DoneCommentsAnnual Wellness Exam05/30/1994HPV/Pap Jxzpuf432Cervical Cancer Bacxddvlv90/11/2022ap Smear COVID-19 Vaccine ( season)/10/2020, 04/20/2020Influenza Vaccine (#1)509/, 02/18/2022, 12/23/2020, Additional history existsDTaP/TDaP/Td (10 - Td or Tdap)5104/10/2014, 11/11/2009, 06/25/2002, Additional history existsHepatitis B YgyieduFxdekvrje82/31/2011, 01/12/2010, 11/11/2009, Additional history existsPneumococcal Vaccine 0-49 Esarakldm67/15/2022Meningococcal B VaccineAged OutNo longer eligible based on patient's age to complete this topic Insurance MemberSubscriberPlan / Payer (Effective 2020-Present)Name:Nakia Cannon Relation to Subscriber:SelfName:Nakia Cannon Payer ID:Not on file Group ID:Not on file Type:Not on file Address: [place] [id number] Advance Directives For more information, please contact: [phone] * Full Code (Latest Code Status on File) Date ActivatedDate TzziksfngziPmtfjvuf70/30/2017 12:50 AM01/05/2017 1:04 PM * Full Code Date ActivatedDate AfqbjgercrcBixwtfkp77/30/2017 12:50 AM01/03/2017 12:50 AM * Full Code Date ActivatedDate DehmcthsafdPbjvjiod64/30/2017 12:50 AM01/03/2017 12:50 AM * Full Code Date ActivatedDate WljeqbxwfltUwkdnbog45/2/2017 1:18 AM12/08/2016 1:29 PM * Full Code Date ActivatedDate InactivatedComments10/29/2016 2:22 PM11/02/2016 10:43 PM Care Teams Team MemberRelationshipSpecialtyStart DateEnd Date Alena Murdock MD [address] [address] [facility] - [facility]
--- OUTSIDE RECORDS SUMMARY | 2025-02-09 13:41 | XMS_ITS | Clinical Summary ---
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 MONITORING NAKCGCGwnzszb54/11/2025 12:01 PM EDT ANTI-XA LMW JYUDPQIZrupx42/10/2025 3:38 AM EDT RENAL FUNCTION PANEL W/FMTGIjeeweu40/09/2025 4:26 AM EDT RNUFTVQEXXixaclq55/09/2025 4:26 AM EDT ANTI-XA LMW AQYNKWWJyeee96/08/2025 8:39 AM EDT RENAL FUNCTION PANEL W/PDCFLQYI34/07/2025 8:34 AM EDT PSDFENA9511/11/2024 8:34 AM EDT ASJWNUIAGPZXZIZC44/06/2025 6:35 AM EDT IQFZECD3311/10/2024 6:35 AM EDT ED HCV AB REFLEX TO HCV UWSHSGysmmwz36/06/2025 6:35 AM EDT BASIC METABOLIC WIUVOGKGQ95/06/2025 6:35 AM EDT XR FOOT RIGHT MINIMUM 3-LYWYMAZCQ96/08/2024 5:02 AM EDT HEMOGLOBIN V9VRqmkycp70/28/2025 1:26 PM EDT POTS (postural orthostatic tachycardia syndrome) Pre-op evaluation Hypertension, unspecified type LIPID VWGWRWtoziqo41/28/2025 1:26 PM EDT POTS (postural orthostatic tachycardia syndrome) Pre-op evaluation Hypertension, unspecified type HIV 1+2 ANTIBODY/ANTIGEN WITH VBOZLUJernsvi58/22/2024 9:32 AM EST Routine screening for STI (sexually transmitted infection) CYTOLOGY - IMAGE GUIDED PAP UQEVFemofuv94/18/2023 12:00 AM EDT Encounter for gynecological examination (general) (routine) without abnormal findings from Last 3 Months or Most Recently Relevant to Health Maintenance Results * Renal Function Panel w/EGFR (01/17/2025 7:36 AM EST) Only the most recent of9 resultswithin the time period is included. ComponentValueRef RangeTest MethodAnalysis TimePerformed AtPathologist Signature Munnsk020108 - 146 mmol/L103/19/2024 8:23 AM ESTEnt[facility] LABPotassium4.03.5 - 5.3 mmol/L103/19/2024 8:23 AM ESTEntrepreneurship Center/[facility]ubator AQWHniswwru87718 - 110 mmol/L 01/17/2025 8:23 AM ESTEntrepreneurship Center/Incubator FFSYN26789 - 33 mmol/L103/19/2024 8:23 AM ESTEntrepreneurship Center/Incubator LABComment:High lactate dehydrogenase concentrations in patient samples may cause falsely increased bicarbonate results. If markedly elevated LDH is observed or suspected, please assess results in conjunction with patient`s clinical presentation. In cases of discrepant results, consider evaluating CO2 in witha blood gas order.Anion Gap93 - 16 mmol/L103/19/2024 8:23 AM ESTEntrepreneurship Center/Incubator WRHMIV13 - 25 mg/dL01/17/2025 8:23 AM ESTEntrepreneurship Center/Incubator LABCreatinine0.750.60 - 1.30 mg/dL01/17/2025 8:23 AM ESTEntrepreneurship Center/Incubator LDNOdnwugo3120 - 100 mg/dL01/17/2025 8:23 AM [facility] LABCalcium8.98.6 - 10.3 mg/dL01/17/2025 8:23 AM [facility] Phosphorus3.72.1 - 4.7 mg/dL01/17/2025 8:23 AM [facility] LABAlbumin4.03.5 - 5.7 g/dL01/17/2025 8:23 AM [facility]UC [facility] LABOsmolality, Tkfsibpdjt196842 - 305 mOsm/kg01/17/2025 8:23 AM [facility]UC [facility] LABEGFR>9001/17/2025 8:23 AM ESTUC [facility]ALTH LABComment: As of 05/05/2021, the estimated GFR is calculated using the 2020 Chronic Kidney Disease Epidemiology Collaboration (CKD-EPI) equation. ??In line with the NKF- ASN Task Force Recommendations, this equation does not include a coefficient for race. ??A single eGFR value is calculated for each patient. The reference interval is >60 mL/min/1.73m2. eGFR values greater than 90 will be reported as >90mL/min/1.73m2. ??Reference: ??Tony C, Etta M, Karey DC, Eunice ND, Mitchell CA, Lani LA, et al. ??A Unifying Approach for GFR Estimation: Recommendations of the NKF-ASN Task Force on Reassessing the inclusion of Race in Diagnosing Kidney Disease. Am J Kidney Dis. 2020. GFR is estimated using creatinine, age, and sex. Patient's values should be interpreted as a trend. ?Below 90 mL/min/1.73m2, the patient may have renal disease. ?For additional information: ?? www.kidney.org Specimen (Source)Anatomical Location / LateralityCollection Method / Volume Collection TimeReceived GljkLbnrse33/13/2025 7:36 AM EST01/17/2025 7:42 AM EST Narrative Authorizing ProviderResult TypeResult StatusTerbety Bansal [facility] BLOOD ORDERABLESFinal ResultPerforming OrganizationAddressCity/State/ZIP CodePhone Number [facility] [address] [place] [address], [facility] * (ABNORMAL) CBC (01/17/2025 7:36 AM EST) Only the most recent of10 resultswithin the time period is included. ComponentValueRef RangeTest MethodAnalysis TimePerformed AtPathologist Signature WBC5.33.8 - 10.8 10E3/uL01/17/2025 7:58 AM [facility] LABRBC4.123.80 - 5.10 10E6/uL01/17/2025 7:58 AM [facility] GTNJeyroabkeo37.311.7 - 15.5 g/dL 01/17/2025 7:58 AM [facility] RNVLncywlcymh68.235.0 - 45.0 %01/17/2025 7:58 AM [facility] WZTHVL91.480.0 - 100.0 fL01/17/2025 7:58 AM [facility] PXKPYE14.9 27.0 - 33.0 pg01/17/2025 7:58 AM [facility] WBITUYB08.132.0 - 36.0 g/dL 01/17/2025 7:58 AM [facility] WJVHZG92.3(H)11.0 - 15.0 %01/17/2025 7:58 AM EST [facility] RHVKpszvyync586533 - 400 10E3/uL01/17/2025 7:58 AM [facility] LABMPV 8.57.5 - 11.5 fL01/17/2025 7:58 AM [facility] LABSpecimen (Source)Anatomical Location / LateralityCollection Method / VolumeCollection TimeReceived TimeWhole Blood01/17/2025 7:36 AM EST01/17/2025 7:42 AM EST Narrative Authorizing ProviderResult TypeResult StatusTeriejill Bansal [facility] BLOOD ORDERABLESFinal ResultPerforming OrganizationAddressCity/State/ZIP CodePhone Number [facility] [address] [place] [address], [facility] * Magnesium (01/17/2025 7:36 AM EST) Only the most recent of7 resultswithin the time period is included. ComponentValueRef RangeTest MethodAnalysis TimePerformed AtPathologist Signature Magnesium1.71.5 - 2.5 mg/dL01/17/2025 8:23 AM [facility] LABSpecimen (Source) Anatomical Location / LateralityCollection Method / VolumeCollection Time Received OytcLxqigw68/13/2025 7:36 AM EST01/17/2025 7:42 AM EST Narrative Authorizing ProviderResult TypeResult StatusAnson Bansal [facility] BLOOD ORDERABLESFinal ResultPerforming OrganizationAddressCity/State/ZIP CodePhone Number [facility] [address] [place] [address], [facility] * EKG - scan (01/15/2025 11:49 AM EST) Narrative Authorizing ProviderResult TypeResult StatusScanning [facility] HospitalCAN DOCS - NO RESULTSFinal Result * (ABNORMAL) Hepatic Function Panel, AM (01/15/2025 4:14 AM EST) Only the most recent of3 resultswithin the time period is included. ComponentValueRef RangeTest MethodAnalysis TimePerformed AtPathologist Signature Total Bilirubin0.30.0 - 1.5 mg/dL01/15/2025 5:15 AM [facility]UC [facility] LABBilirubin, Direct0.070.00 - 0.40 mg/dL01/15/2025 5:15 AM [facility] ZMITKQ6975 - 39 U/L 01/15/2025 5:15 AM [facility] INEXRS383 - 52 U/L103/17/2024 5:15 AM [facility] LABAlkaline Vjjimnrfwab8856 - 125 U/L103/17/2024 5:15 AM [facility] Total Protein6.2(L)6.4 - 8.9 g/dL01/15/2025 5:15 AM [facility] LABAlbumin3.9 3.5 - 5.7 g/dL01/15/2025 5:15 AM [facility] LABBilirubin, Indirect0.230.00 - 1.10 mg/dL01/15/2025 5:15 AM [facility] LABSpecimen (Source)Anatomical Location / LateralityCollection Method / VolumeCollection TimeReceived Time Nhqfxe0301/15/2025 4:14 AM EST01/15/2025 4:27 AM EST Narrative Authorizing ProviderResult TypeResult StatusFabiola Sharif [facility] BLOOD ORDERABLESFinal ResultPerforming OrganizationAddressCity/State/ZIP CodePhone Number [facility] [address] [place] [address], [facility] * ECG for indication of dysrhythmia (01/15/2025 1:36 AM EST)Specimen (Source) Anatomical Location / LateralityCollection Method / VolumeCollection Time Received Time01/15/2025 1:36 AM EST Narrative MUSE - 01/15/2025 8:21 AM EST Ventricular Rate: 90 BPM Atrial Rate: ??90 ??BPM P-R Interval: ??166 ??ms QRS Duration: ??80 ??ms QT: ??392 ??ms QTc: ??479 ??ms P [place]: ??56 ??degrees R [place]: ??-20 ??degrees T [place]: ??36 ??degrees Diagnosis Line: ?? ^ INTERPRETATION NOT AVAILABLE--ECG READ IN ER ^ Confirmed by PHYSICIAN, ER ([id number]), senior editor Bonnie Crooks ([id number]) on 01/15/2025 8:21:56 AM Authorizing ProviderResult TypeResult StatusJennifer Kelly MDECCristóbal ORDERABLESFinal ResultPerforming OrganizationAddressCity/State/ZIP CodePhone Number MUSE * CT Abdomen and Pelvis With IV contrast (01/14/2025 10:11 PM EST)Anatomical RegionLateralityModalityAbdomen, PelvisComputed TomographySpecimen (Source) Anatomical Location / LateralityCollection Method / VolumeCollection Time Received Time01/14/2025 10:07 PM EST Impressions 01/14/2025 11:28 PM EST IMPRESSION: 1. ??Acute cystitis. No associated hydroureteronephrosis. 2. 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 3. ??Hepatic steatosis. Approved by Yazan Woods MD on 01/14/2025 10:39 PM EST I have personally reviewed the images and I agree with this report. Report Verified by: Deepthi Aburto MD at 01/14/2025 11:28 PM EST Narrative 01/14/2025 11:28 PM EST EXAM: CT ABDOMEN AND PELVIS WITH IV CONTRAST INDICATION: Abdominal pain, acute, nonlocalized TECHNIQUE: CT of the abdomen and pelvis was performed after the administration of intravenous contrast. Axial images were obtained with coronal and sagittal reconstructions. CONTRAST: 150 mL of IOHEXOL 350 MG IODINE/ML INTRAVENOUS SOLUTION administered intravenously FIELD OF VIEW: 50 cm COMPARISON: CT of abdomen and pelvis from 04/05/2024. FINDINGS: Lower Chest: Lung bases clear. Liver: Hepatic steatosis without focal hepatic lesions. Biliary tree: No biliary ductal dilation. Infolding appearance of the gallbladder neck is similar to prior. No pericholecystic fluid or inflammatory stranding. Spleen: Not enlarged. Pancreas: Fatty atrophy of the pancreatic head and uncinate is unchanged. Adrenal glands: Normal morphology. Kidneys/Ureters/Bladder: Symmetric renal enhancement. No hydronephrosis. Urinary bladder is decompressed with diffuse bladder wall thickening, urothelial enhancement, and mild perivesicular stranding. Gastrointestinal tract: GI tract is normal in caliber without obstruction. Layering liquid stool throughout the colon and rectum. Normal appendix. Lymphatics: No lymphadenopathy. Vasculature: Severe median arcuate ligament compression and near occlusive stenosis of the celiac artery origin with pancreaticoduodenal arcade collaterals, similar to prior. Peritoneum/Retroperitoneum: No free fluid, focal fluid collections or free air. Genital Organs: Appropriately positioned IUD. Follicular cysts within bilateral ovaries with largest on the right measuring up to 2.2 cm and peripheral enhancing left ovarian corpus luteal cyst measuring up to 1.4 cm. Abdominal wall/Soft tissues: Left sacral stimulator lead and posterior right flank generator pack in unchanged position. Osseous structures: No acute osseous abnormality. Procedure Note Deepthi Aburto MD - 01/14/2025 EXAM: CT ABDOMEN AND PELVIS WITH IV CONTRAST INDICATION: Abdominal pain, acute, nonlocalized TECHNIQUE: CT of the abdomen and pelvis was performed after theadministration of intravenous contrast. Axial images were obtained withcoronal and sagittal reconstructions. CONTRAST: 150 mL of IOHEXOL 350 MG IODINE/ML INTRAVENOUS SOLUTIONadministered intravenously FIELD OF VIEW: 50 cm COMPARISON: CT of abdomen and pelvis from 04/05/2024. FINDINGS: Lower Chest: Lung bases clear. Liver: Hepatic steatosis without focal hepatic lesions. Biliary tree: No biliary ductal dilation. Infolding appearance of thegallbladder neck is similar to prior. No pericholecystic fluid orinflammatory stranding. Spleen: Not enlarged. Pancreas: Fatty atrophy of the pancreatic head and uncinate isunchanged. Adrenal glands: Normal morphology. Kidneys/Ureters/Bladder: Symmetric renal enhancement. No hydronephrosis.Urinary bladder is decompressed with diffuse bladder wall thickening,urothelial enhancement, and mild perivesicular stranding. Gastrointestinal tract: GI tract is normal in caliber without obstruction. Layering liquid stool throughout the colon and rectum. Normal appendix. Lymphatics: No lymphadenopathy. Vasculature: Severe median arcuate ligament compression and near occlusive stenosis of the celiac artery origin with pancreaticoduodenal arcadecollaterals, similar to prior. Peritoneum/Retroperitoneum: No free fluid, focal fluid collections or freeair. Genital Organs: Appropriately positioned IUD. Follicular cysts withinbilateral ovaries with largest on the right measuring up to 2.2 cm andperipheral enhancing left ovarian corpus luteal cyst measuring up to 1.4cm. Abdominal wall/Soft tissues: Left sacral stimulator lead and posteriorright flank generator pack in unchanged position. Osseous structures: No acute osseous abnormality. IMPRESSION: 1. Acute cystitis. No associated hydroureteronephrosis. 2. 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 3. Hepatic steatosis. Approved by Yazan Woods MD on 01/14/2025 10:39 PM EST I have personally reviewed the images and I agree with this report. Report Verified by: Deepthi Aburto MD at 01/14/2025 11:28 PM EST Authorizing ProviderResult TypeResult Macy Kelly MDCristóbal CT ORDERABLESFinal Result * Lactic acid, venous, whole blood (01/14/2025 8:11 PM EST)ComponentValueRef RangeTest MethodAnalysis TimePerformed AtPathologist SignatureLactate, Ven1.2 0.5 - 1.6 mmol/L103/16/2024 8:19 PM ESTC[facility] LABSpecimen (Source)Anatomical Location / LateralityCollection Method / VolumeCollection TimeReceived Time Blood, Vefbxm7301/14/2025 8:11 PM EST01/14/2025 8:14 PM EST Narrative Authorizing ProviderResult TypeResult Macy BARAKAT BLOOD ORDERABLES Final ResultPerforming OrganizationAddressCity/State/ZIP CodePhone Number [facility] [address] [place] [address], [facility] * HCG Qualitative w/Reflex to HCG Quant (01/14/2025 7:54 PM EST)ComponentValue Ref RangeTest MethodAnalysis TimePerformed AtPathologist SignatureHCG OpmelnixhtrKyvgldriMojoxnst50/10/2025 9:55 PM ESTUC [facility] LABSpecimen (Source)Anatomical Location / LateralityCollection Method / VolumeCollection TimeReceived GvyqWupuke43/10/2025 7:54 PM EST01/14/2025 8:01 PM EST Narrative Authorizing ProviderResult TypeResult StatusRyan Cameron [facility] BLOOD ORDERABLES Final ResultPerforming OrganizationAddressCity/State/ZIP CodePhone Number [facility] [address] * (ABNORMAL) Urinalysis, Microscopic (01/14/2025 7:54 PM EST)ComponentValueRef RangeTest MethodAnalysis TimePerformed AtPathologist SignatureRBC, UA10 - 3 /HPF01/14/2025 11:15 PM ESTUC [facility] LABWBC, UA6(H)0 - 5 /HPF01/14/2025 11:15 PM ESTUC [facility] LABSquam Epithel, UA31(H)0 - 5 /HPF01/14/2025 11:15 PM ESTUC [facility] LABBacteria, UAModerate(A)None Seen /HPF01/14/2025 11:15 PM ESTUC [facility] LABMucus, UAPresent(A)None Seen /HPF01/14/2025 11:15 PM ESTUC [facility] LABSpecimen (Source)Anatomical Location / LateralityCollection Method / Volume Collection TimeReceived YabjPvkkj34/10/2025 7:54 PM EST01/14/2025 9:54 PM EST Narrative Authorizing ProviderResult TypeResult StatusRyan Cameron PAURINE ORDERABLESFinal ResultPerforming OrganizationAddressCity/State/ZIP CodePhone Number [facility] [address] * (ABNORMAL) Urinalysis-Macroscopic w/Rfx to Microsco (01/14/2025 7:54 PM EST) ComponentValueRef RangeTest MethodAnalysis TimePerformed AtPathologist SignatureColor, UAYellowYellow,Straw01/14/2025 11:15 PM [facility] Clarity, UACloudy(A)Clear01/14/2025 11:15 PM ESTUC [facility] LABSpecific Dille, UA1.0171.005 - 1.9967701/14/2025 11:15 PM ESTUC [facility] LABpH, UA6.55.0 - 8.0 01/14/2025 11:15 PM [facility] LABProtein, UATrace(A)Negative mg/dL 01/14/2025 11:15 PM EST[facility] LABGlucose, UANegativeNegative mg/dL 01/14/2025 11:15 PM ESTUC [facility] LABKetones, UA20(A)Negative mg/dL01/14/2025 11:15 PM ESTUC [facility] LABBilirubin, ZQKcsoulzwRepxeppn48/10/2025 11:15 PM EST HE[facility] LABBlood, QFIkyfnxifUedrrsmg18/10/2025 11:15 PM [facility] Nitrite, JIXubxgnvfMeormpnl91/10/2025 11:15 PM ESTUC [facility] LABUrobilinogen, UA<2.00.2 - 1.9 mg/dL01/14/2025 11:15 PM ESTUC [facility] LABLeukocyte Esterase, EAAuiydfxzHlvuuoet49/10/2025 11:15 PM ESTUC [facility] LABSpecimen (Source) Anatomical Location / LateralityCollection Method / VolumeCollection Time Received LyciJetdh55/10/2025 7:54 PM EST01/14/2025 8:01 PM EST Narrative Authorizing ProviderResult TypeResult StatusRyan Cameron SHETTY ORDERABLESFinal ResultPerforming OrganizationAddressCity/State/ZIP CodePhone Number [facility] [address] [place] [address], [facility] * Differential (01/14/2025 7:54 PM EST) Only the most recent of2 resultswithin the time period is included. ComponentValueRef RangeTest MethodAnalysis TimePerformed AtPathologist Signature Neutrophils Aqfwlyta38.240.0 - 80.0 %01/14/2025 8:21 PM [facility] Lymphocytes Ejztrkqm56.115.0 - 45.0 %01/14/2025 8:21 PM [facility] Monocytes Fqevxfew19.40.0 - 12.0 %01/14/2025 8:21 PM [facility] LABEosinophils Relative2.30.0 - 8.0 %01/14/2025 8:21 PM EST[facility] LABBasophils Relative1.0 0.0 - 1.0 %01/14/2025 8:21 PM ESTUC [facility] QYQzYBW42 - 0 /100 WBC01/14/2025 8:21 PM ESTUC [facility] LABNeutrophils Absolute5,0571,520 - 8,640 /uL01/14/2025 8:21 PM ESTUC [facility] LABLymphocytes Absolute2,314609 - 4,860 /uL01/14/2025 8:21 PM [facility] LABMonocytes Lgtugrls0497 - 1,296 /uL01/14/2025 8:21 PM [facility] Eosinophils Ciwqbnxm0462 - 864 /uL01/14/2025 8:21 PM [facility] LABBasophils Ynhjuevj248 - 108 /uL01/14/2025 8:21 PM ESTUC [facility] LABSpecimen (Source) Anatomical Location / LateralityCollection Method / VolumeCollection Time Received TimeWhole Blood01/14/2025 7:54 PM EST01/14/2025 8:01 PM EST Narrative Authorizing ProviderResult TypeResult StatusRyan Cameron PAL[facility] BLOOD ORDERABLES Final ResultPerforming OrganizationAddressCity/State/ZIP CodePhone Number [facility] [address] * Lipase (01/14/2025 7:54 PM EST)ComponentValueRef RangeTest MethodAnalysis Time Performed AtPathologist PvpnfkjyiSfnbgb004 - 82 U/L103/16/2024 8:50 PM EST HEALTH LABSpecimen (Source)Anatomical Location / LateralityCollection Method / VolumeCollection TimeReceived RspxSsyceg95/10/2025 7:54 PM EST01/14/2025 8:01 PM EST Narrative Authorizing ProviderResult TypeResult StatusRyan Cameron PALAB BLOOD ORDERABLES Final ResultPerforming OrganizationAddressCity/State/ZIP CodePhone Number [facility] [address] * Basic metabolic panel (01/14/2025 7:54 PM EST) Only the most recent of2 resultswithin the time period is included. ComponentValueRef RangeTest MethodAnalysis TimePerformed AtPathologist Signature Hgjnuh581118 - 146 mmol/L103/16/2024 8:50 PM ESTUC [facility] LABPotassium4.33.5 - 5.3 mmol/L103/16/2024 8:50 PM ESTUC [facility] LABComment:Specimen Grossly Hemolyzed. Potassium result is not reliable. Recollect specimen.Wnnfcdia65644 - 110 mmol/L 01/14/2025 8:50 PM [facility]UC [facility] HNSFV52784 - 33 mmol/L103/16/2024 8:50 PM ESTUC [facility] LABComment:High lactate dehydrogenase concentrations in patient samples may cause falsely increased bicarbonate results. If markedly elevated LDH is observed or suspected, please assess results in conjunction with patient`s clinical presentation. In cases of discrepant results, consider evaluating CO2 in witha blood gas order.Anion Icd190 - 16 mmol/L103/16/2024 8:50 PM [facility] RSUTKG286 - 25 mg/dL01/14/2025 8:50 PM [facility] LABCreatinine0.810.60 - 1.30 mg/dL01/14/2025 8:50 PM [facility] JTTTqszedu6787 - 100 mg/dL01/14/2025 8:50 PM ESTUC [facility] LABCalcium9.38.6 - 10.3 mg/dL01/14/2025 8:50 PM [facility] Osmolality, Yvvmjdxvqv547431 - 305 mOsm/kg01/14/2025 8:50 PM [facility] EGFR>9001/14/2025 8:50 PM ESTUC [facility] LABComment: As of 05/05/2021, the estimated GFR is calculated using the 2020 Chronic Kidney Disease Epidemiology Collaboration (CKD-EPI) equation. ??In line with the NKF- ASN Task Force Recommendations, this equation does not include a coefficient for race. ??A single eGFR value is calculated for each patient. The reference interval is >60 mL/min/1.73m2. eGFR values greater than 90 will be reported as >90mL/min/1.73m2. ??Reference: ??Tony C, Etta M, Karey DC, Eunice ND, Mitchell CA, Flap Presser LA, et al. ??A Unifying Approach for GFR Estimation: Recommendations of the NKF-ASN Task Force on Reassessing the inclusion of Race in Diagnosing Kidney Disease. Am J Kidney Dis. 2020. GFR is estimated using creatinine, age, and sex. Patient's values should be interpreted as a trend. ?Below 90 mL/min/1.73m2, the patient may have renal disease. ?For additional information: ?? www.kidney.org Specimen (Source)Anatomical Location / LateralityCollection Method / Volume Collection TimeReceived MchzZtsyfa03/10/2025 7:54 PM EST01/14/2025 8:01 PM EST Narrative Authorizing ProviderResult TypeResult StatusRyan Cameron PALAB BLOOD ORDERABLES Final ResultPerforming OrganizationAddressty/State/ZIP CodePhone Number [facility] [address] * (ABNORMAL) Urine Culture, Outpatient (01/11/2025 2:56 PM EST)ComponentValueRef RangeTest MethodAnalysis TimePerformed AtPathologist SignatureCulture Result Escherichia coli(A)[facility] LABComment: >=100,000 cfu/mL Identified by MALDI-TOF MS For uncomplicated UTI only, a cefazolin KATHE of <=16 should be interpreted as Susceptible. Testing Performed at Laboratory Specimen (Source)Anatomical Location / LateralityCollection Method / Volume Collection TimeReceived TimeMidstream UrineURINE SPECIMEN / Onnwfxu6801/11/2025 2:56 PM EST01/11/2025 5:25 PM EST Narrative OrganismAntibioticMethodSusceptibilityEscherichia coliAmpicillinMIC <=2: Susceptible Escherichia coliAmpicillin/SulbactamMIC <=2: Susceptible Escherichia coliCefazolinMIC <=1: Susceptible Escherichia coliCeftriaxoneMIC <=0.25: Susceptible Escherichia coliCiprofloxacinMIC <=0.06: Susceptible Escherichia coliGentamicinMIC <=1: Susceptible Escherichia coliNitrofurantoinMIC <=16: Susceptible Escherichia coliSulfa/TrimethoprimMIC <=20: Susceptible Comment:See ResultsAuthorizing ProviderResult TypeResult StatusAlena Garcia CNPMICROBIOLOGY - GENERAL ORDERABLESFinal ResultPerforming OrganizationAddress City/State/ZIP CodePhone Number [facility] [address] [place] [id number], [facility] * (ABNORMAL) POC Urinalysis (01/11/2025 2:12 PM EST)ComponentValueRef RangeTest MethodAnalysis TimePerformed AtPathologist SignatureGlucose, POC, UANegative Negative mg/dL01/11/2025 2:13 PM ESTC[facility] LABBilirubin, UANegativeNegative 01/11/2025 2:13 PM [facility] LABKetones, POC, UANegativeNegative mg/dL 01/11/2025 2:13 PM [facility] LABSpec Grav, UA>=1.0301.005 - 1.8735501/11/2025 2:13 PM [facility] LABBlood, POC, UATrace-intact(A)Yscczkrz01/07/2025 2:13 PM [facility] LABpH, POC,UA5.55.0 - 8.011 2:13 PM [facility] Protein, POC, UATrace(A)Negative mg/dL01/11/2025 2:13 PM [facility] Urobilinogen, POC, UA0.20.2 - 1.0 mg/dL01/11/2025 2:13 PM [facility] Nitrite, POC, UAPositive(A)Ehfbhauy08/07/2025 2:13 PM [facility] Leukocytes, POC, UASmall(A)Izbutwpu87/07/2025 2:13 PM [facility] LABSpecimen (Source)Anatomical Location / LateralityCollection Method / VolumeCollection TimeReceived OpplEbsax53/07/2025 2:12 PM EST01/11/2025 2:13 PM EST Narrative Authorizing ProviderResult TypeResult StatusDerick Padgett MDPOINT OF CARE TEST ORDERABLESFinal ResultPerforming OrganizationAddressCity/State/ZIP CodePhone Number [facility] [address] [place] [address], [facility] * MRI Brachial Plexus WO Contrast (12/28/2024 4:18 PM EDT)Anatomical Region LateralityModalityShoulder, C-spine, NeckMagnetic ResonanceSpecimen (Source) Anatomical Location / LateralityCollection Method / VolumeCollection Time Received Time12/28/2024 2:57 PM EDT Impressions 01/02/2025 4:18 PM EDT IMPRESSION: No evidence of mass or signal abnormality involving the brachial plexus allowing for motion artifacts.. Report Verified by: Dio Collier MD at 01/02/2025 4:18 PM EDT Narrative 01/02/2025 4:18 PM EDT EXAM: MRI BRACHIAL PLEXUS WO CONTRAST INDICATION: Right C8 radiculopathy with negative MRI cervical spine. TECHNIQUE: MRI BRACHIAL PLEXUS WO CONTRAST obtained including multiplanar T1 and T2 weighted imaging. 3D FIESTA, STIR, and IDEAL imaging was also performed. COMPARISON: MRI cervical spine 10/30/2024. FINDINGS: The examination is mildly limited by motion artifacts. BRACHIAL PLEXUS: Cervical nerve roots are intact. Visualized brachial plexus has normal course and signal intensity without mass or mass effect. SOFT TISSUES: Muscle bulk is symmetric without denervation atrophy. CERVICAL SPINE: Visualized vertebral body height and alignment are normal. Bone marrow signal is normal. No cervical rib or enlarged C7 transverse process. SPINAL CORD: Normal. SPINAL CANAL: No spinal canal stenosis. OTHER: Visualized posterior fossa is normal. Procedure Note Dio Collier MD - 01/02/2025 EXAM: MRI BRACHIAL PLEXUS WO CONTRAST INDICATION: Right C8 radiculopathy with negative MRI cervical spine. TECHNIQUE: MRI BRACHIAL PLEXUS WO CONTRAST obtained including multiplanarT1 and T2 weighted imaging. 3D FIESTA, STIR, and IDEAL imaging was alsoperformed. COMPARISON: MRI cervical spine 10/30/2024. FINDINGS: The examination is mildly limited by motion artifacts. BRACHIAL PLEXUS: Cervical nerve roots are intact. Visualized brachialplexus has normal course and signal intensity without mass or masseffect. SOFT TISSUES: Muscle bulk is symmetric without denervation atrophy. CERVICAL SPINE: Visualized vertebral body height and alignment are normal.Bone marrow signal is normal. No cervical rib or enlarged C7 transverseprocess. SPINAL CORD: Normal. SPINAL CANAL: No spinal canal stenosis. OTHER: Visualized posterior fossa is normal. IMPRESSION: No evidence of mass or signal abnormality involving the brachial plexusallowing for motion artifacts.. Report Verified by: Dio Collier MD at 01/02/2025 4:18 PM EDT Authorizing ProviderResult TypeResult StatusMicdiego Casarez MDIMG MRI ORDERABLESFinal Result * X-ray Foot Right min 3-views (12/13/2024 2:22 PM EDT) Only the most recent of2 resultswithin the time period is included. Anatomical RegionLateralityModalityFoot, AnkleRadiographic ImagingSpecimen (Source)Anatomical Location / LateralityCollection Method / VolumeCollection TimeReceived Time12/13/2024 2:14 PM EDT Impressions 12/16/2024 6:48 PM EDT FINDINGS/IMPRESSION: Talonavicular and subtalar arthrodesis hardware unchanged in position. Report Verified by: Paramjit Sosa MD at 12/16/2024 6:48 PM EDT Narrative 12/16/2024 6:48 PM EDT EXAM: XR ANKLE RIGHT 2-VIEWS EXAM: XR FOOT RIGHT MINIMUM 3-VIEWS INDICATION: Arthritis of right midfoot COMPARISON: December 13, 2024. TECHNIQUE: Multiple views of the right ankle and right foot. Procedure Note Paramjit Soas MD - 12/16/2024 EXAM: XR ANKLE RIGHT 2-VIEWS EXAM: XR FOOT RIGHT MINIMUM 3-VIEWS INDICATION: Arthritis of right midfoot COMPARISON: December 13, 2024. TECHNIQUE: Multiple views of the right ankle and right foot. FINDINGS/IMPRESSION: Talonavicular and subtalar arthrodesis hardware unchanged in position. Report Verified by: Paramjit Sosa MD at 12/16/2024 6:48 PM EDT Authorizing ProviderResult TypeResult StatusJane BRUCE DIAGNOSTIC IMAGING ORDERABLESFinal Result * X-ray Ankle Right 2-views (12/13/2024 2:22 PM EDT)Anatomical RegionLaterality ModalityLeg, Ankle, FootRadiographic ImagingSpecimen (Source)Anatomical Location / LateralityCollection Method / VolumeCollection TimeReceived Time 12/13/2024 2:14 PM EDT Impressions 12/16/2024 6:48 PM EDT FINDINGS/IMPRESSION: Talonavicular and subtalar arthrodesis hardware unchanged in position. Report Verified by: Paramjit Sosa MD at 12/16/2024 6:48 PM EDT Narrative 12/16/2024 6:48 PM EDT EXAM: XR ANKLE RIGHT 2-VIEWS EXAM: XR FOOT RIGHT MINIMUM 3-VIEWS INDICATION: Arthritis of right midfoot COMPARISON: December 13, 2024. TECHNIQUE: Multiple views of the right ankle and right foot. Procedure Note Paramjit Sosa MD - 12/16/2024 EXAM: XR ANKLE RIGHT 2-VIEWS EXAM: XR FOOT RIGHT MINIMUM 3-VIEWS INDICATION: Arthritis of right midfoot COMPARISON: December 13, 2024. TECHNIQUE: Multiple views of the right ankle and right foot. FINDINGS/IMPRESSION: Talonavicular and subtalar arthrodesis hardware unchanged in position. Report Verified by: Paramjit Sosa MD at 12/16/2024 6:48 PM EDT Authorizing ProviderResult TypeResult StatusJane Palma MDIMCristóbal DIAGNOSTIC IMAGING ORDERABLESFinal Result * (ABNORMAL) Venous Blood Gas, Line/Syringe, STAT (11/16/2024 5:29 PM EDT) Only the most recent of3 resultswithin the time period is included. ComponentValueRef RangeTest MethodAnalysis TimePerformed AtPathologist Signature PH-Line Draw7.347.32 - 7.4209 5:52 PM EDT HEALTH LABPCO2-Line Yvuw5518 - 51 mm Hg11/16/2024 5:52 PM [facility] LABPO2-Line Draw47(H)25 - 40 mm Hg 11/16/2024 5:52 PM EDTCLEVELAND CLINIC UNION [facility]OSPITAL LABHCO3-Line Draw23(L)24 - 28 mmol/L11/16/2024 5:52 PM EDT HEALTH LABCO2 Content-Line Enzf2910 - 29 mmol/L11/16/2024 5:52 PM EDT HEALTH LABBase Excess-Line Draw-1.6-2.0 - 3.0 mmol/L11/16/2024 5:52 PM EDT HEALTH LAB%HBO2-Line Draw73.1(H)40.0 - 70.0 %11/16/2024 5:52 PM EDT HEALTH LABCarboxyhgb-Line Draw1.6%11/16/2024 5:52 PM EDT HEALTH LABComment: CARBOXYHEMOGLOBIN (CO) REFERENCE RANGES: Non-Smokers: <2 % Smokers: <8 % TOXIC: >20 % Methemoglobin-Line Draw0.70.0 - 1.5 %11/16/2024 5:52 PM EDTUC HEALTH LABReduced Hemoglobin-Line Draw24.7(H)0.0 - 5.0 %11/16/2024 5:52 PM EDTUC HEALTH LAB Specimen (Source)Anatomical Location / LateralityCollection Method / Volume Collection TimeReceived TimeVenous, Line Draw11/16/2024 5:29 PM EDT11/16/2024 5:49 PM EDT Narrative Authorizing ProviderResult TypeResult StatusBrenda Fernandez [facility] BLOOD ORDERABLESFinal ResultPerforming OrganizationAddressCity/State/ZIP CodePhone Number [facility] [address] [facility] * Lactic Acid, STAT (11/16/2024 5:29 PM EDT) Only the most recent of2 resultswithin the time period is included. ComponentValueRef RangeTest MethodAnalysis TimePerformed AtPathologist Signature Lactate0.70.5 - 2.2 mmol/L11/16/2024 6:08 PM EDTUC HEALTH LABSpecimen (Source) Anatomical Location / LateralityCollection Method / VolumeCollection Time Received BfoyUijrco90/12/2025 5:29 PM EDT11/16/2024 5:38 PM EDT Narrative Authorizing ProviderResult TypeResult StatusBrenda Fernandez [facility] BLOOD ORDERABLESFinal ResultPerforming OrganizationAddressty/State/ZIP CodePhone Number [facility] [address] [facility] * POC Glucose Monitoring Device (11/16/2024 5:14 PM EDT) Only the most recent of2 resultswithin the time period is included. ComponentValueRef RangeTest MethodAnalysis TimePerformed AtPathologist Signature POC Glucose Monitoring Lisqnu7261 - 100 mg/dL11/16/2024 5:19 PM EDTUC HEALTH LAB Specimen (Source)Anatomical Location / LateralityCollection Method / Volume Collection TimeReceived GkukIhgie02/12/2025 5:14 PM EDT11/16/2024 5:19 PM EDT Narrative Authorizing ProviderResult TypeResult Vivek Palma MDPOINT OF CARE TEST ORDERABLESFinal ResultPerforming OrganizationAddressCity/State/ZIP CodePhone Number [facility] [address] [facility] * Anti-Xa LMW Heparin (11/16/2024 11:40 AM EDT) Only the most recent of3 resultswithin the time period is included. ComponentValueRef RangeTest MethodAnalysis TimePerformed AtPathologist Signature Anti-Xa LMW Heparin0.510.50 - 1.10 units/mL11/16/2024 12:22 PM EDTUC HEALTH LAB Specimen (Source)Anatomical Location / LateralityCollection Method / Volume Collection TimeReceived BujlBsbpkg97/12/2025 11:40 AM EDT11/16/2024 12:01 PM EDT Narrative Authorizing ProviderResult TypeResult Vivek BARAKAT BLOOD ORDERABLES Final ResultPerforming OrganizationAddressCity/State/ZIP CodePhone Number [facility] [address] [facility] * ED HCV Ab Reflex To HCV Quant (11/10/2024 6:35 AM EDT)ComponentValueRef Range Test MethodAnalysis TimePerformed AtPathologist SignatureHCV AbNonreactive Vrlznyzcdqs49/06/2025 10:40 AM EDT HEALTH LABComment:Health Department notified in accordance with reportable infectious disease guidelines.HCVAB Number0.180.00 - 0.79 S/CO11/10/2024 10:40 AM TC[facility] LABSpecimen (Source)Anatomical Location / LateralityCollection Method / VolumeCollection TimeReceived UxnaPwtth04/06/2025 6:35 AM EDT11/10/2024 6:59 AM EDT Narrative Authorizing ProviderResult TypeResult StatusSamira BARAKAT BLOOD ORDERABLESFinal ResultPerforming OrganizationAddressCity/State/ZIP CodePhone Number [facility] [address] [facility] * Hemoglobin A1c (11/01/2024 1:26 PM EDT)ComponentValueRef RangeTest Method Analysis TimePerformed AtPathologist SignatureHemoglobin A1C5.24.0 - 5.6 % 11/02/2024 4:55 AM [facility] HEALTH LABComment: Hemoglobin A1c Interpretation Guidelines: Normal: <5.7% Prediabetes: 5.7-6.4% Diabetes: >6.4% Diagnosis requires two independent tests unless clinical diagnosis is clear. Some clinical conditions, particularly anemias and hemoglobinopathies, may interfere with the diagnostic accuracy of hemoglobin A1c. The recommended goal for diabetic glycemic control (Hemoglobin A1c <7.0%) should be individualized based on duration of diabetes, age/life expectancy, comorbid conditions, known CVD or advanced microvascular complications, hypoglycemia unawareness, and other individual patient considerations. Specimen (Source)Anatomical Location / LateralityCollection Method / Volume Collection TimeReceived TimeWhole Blood11/01/2024 1:26 PM EDT11/01/2024 5:09 PM EDT Narrative Authorizing ProviderResult TypeResult StatusIvan Yossi Barcenas [facility] BLOOD ORDERABLESFinal ResultPerforming OrganizationAddressCity/State/ZIP CodePhone Number [facility] [address] * (ABNORMAL) Lipid Profile (11/01/2024 1:26 PM EDT)ComponentValueRef RangeTest MethodAnalysis TimePerformed AtPathologist SignatureNon-HDL Cholesterol, Pqvhfopezt984(H)0 - 129 mg/dL11/01/2024 5:39 PM [facility] LABComment: Desirable: < 130 mg/dL Above Desirable: 130-159 mg/dL Borderline High: 160-189 mg/dL High: 190-219 mg/dL Very High: > 219 mg/dL Cholesterol, Mwlng3962 - 200 mg/dL11/01/2024 5:39 PM EDT HEALTH LAB Rkyekaegdlgbn6521 - 149 mg/dL11/01/2024 5:39 [facility] ADQHPK49(L)60 - 92 mg/dL11/01/2024 5:39 PM [facility] HEALTH LABComment: ?LIPID PROFILE INTERPRETATION ?CHOLESTEROL,TOTAL(mg/dL) ? DESIRABLE: < 200 ? BORDERLINE HIGH RISK: ? 200 - 239 ? HIGH RISK(UNDESIRABLE): =/> 240 ?LDL CHOLESTEROL(mg/dL) ? OPTIMAL: < 100 ? NEAR HIGH OPTIMAL: ?100 - 129 ? BORDERLINE HIGH RISK: ? 130 - 159 ? HIGH RISK: ?160 - 189 ? VERY HIGH RISK: =/> 190 ?HDL CHOLESTEROL(mg/dL) ? HIGH RISK(UNDESIRABLE): < 40 ?? BORDERLINE: ? 40 - 59 ? LOW RISK (DESIRABLE): => 60 ?TRIGLYCERIDES (mg/dL) ? NORMAL(DESIRABLE): < 150 ? BORDERLINE HIGH RISK: ? 150 - 199 ? HIGH RISK: ?200 - 499 ? VERY HIGH RISK: =/> 500 ? Based on the guidlines of the National Cholesterol ? Education Program (NCEP). ? Assumes sample obtained after a 9- to 12- hour fast. LDL Fzekbiurafk264ii/dL11/01/2024 5:39 PM EDT HEALTH LABSpecimen (Source) Anatomical Location / LateralityCollection Method / VolumeCollection Time Received SksaGtkaww62/28/2025 1:26 PM EDT11/01/2024 5:10 PM EDT Narrative HEALTH LAB - 11/01/2024 5:39 PM EDT Must the patient be fasting for this test?->Yes LDL cholesterol calculated using the Friedewald equation. Authorizing ProviderResult TypeResult StatusIvan Yossi RADER BLOOD ORDERABLESFinal ResultPerforming OrganizationAddressCity/State/ZIP CodePhone Number [facility] [address] [place] [address], [facility] * HIV 1+2 Antibody/Antigen with Reflex (04/28/2023 9:32 AM EST)ComponentValueRef RangeTest MethodAnalysis TimePerformed AtPathologist SignatureHIV 1+2 AB/AGN VdylrcreoqyAsotgfluqho13/22/2024 5:09 PM ESTCLEVELAND CLINIC UNION [facility] LABSpecimen (Source) Anatomical Location / LateralityCollection Method / VolumeCollection Time Received QtomRqfag23/22/2024 9:32 AM EST04/28/2023 4:29 PM EST Narrative HEALTH LAB - 04/28/2023 5:09 PM EST HIV-1 p24 Antigen and HIV-1/HIV-2 Antibody not detected. Authorizing ProviderResult TypeResult StatusMaureen Shelbie [facility] BLOOD ORDERABLESFinal ResultPerforming OrganizationAddressCity/State/ZIP Code Phone Number [facility] [address] [place] [phone], [facility] * Cytology-Image Guided PAP, CT-NG And HR HPV ASCUS (07/22/2022 12:00 AM EDT) Specimen (Source)Anatomical Location / LateralityCollection Method / Volume Collection TimeReceived TimePap Vial/ Narrative [facility] - 07/22/2022 12:00 AM EDT CASE: [id number] PATIENT: NAKIA KANG Clinical History: ?? IUD; No; Previous PAP Date: ??Not given LMP: Not given Specimen(s) Submitted: ?? A. Image Guided Pap Test, CT-NG, and High-Risk HPV CPT Code(s): ?? 17497 X 1; 37230 X 1; 13211 X 1; 99156.S X 1 Additional Information: Image Guided Pap:->[id number] Image Guided Pap Test, CT-NG, and High-Risk HPV CYTOLOGIC DIAGNOSIS: Specimen Adequacy: Satisfactory for evaluation - endocervical component absent INTERPRETATION: NEGATIVE FOR INTRAEPITHELIAL LESION OR MALIGNANCY COMMENTS: This specimen has been analyzed by the ThinPrep Imaging System (pickrset), an automated imaging system, which assists the laboratory in evaluating cells on ThinPrep Pap tests. HUMAN PAPILLOMAVIRUS DNA, HIGH RISK HPV 16: Negative HPV 18: Negative HPV OTH: Negative Human Papilloma Virus 16, 18, and/or High Risk Pool (31, 33, 35, 39, 45, 51, 52, 56, 58, 59, 66, 68) is detected by an FDA-approved DNA amplification test. Positive for the High Risk Pool indicates that one or more of the genotypes was detected. A Negative for any of the genotypes indicates that the genotype(s) was undetectable or below the threshold of the test. CHLAMYDIA TRACHOMATIS-NEISSERIA GONORRHEA DNA: Chlamydia trachomatis: ??Positive Health Department notified in accordance with reportable infectious disease guidelines. Neisseria gonorrhoeae: ??Negative The presence of Chlamydia trachomatis and Neisseria gonorrhoeae DNA is detected by a U.S. Food and Drug Administration-approved amplification assay. PRIOR PAP SMEAR DIAGNOSES: DATE PATHOLOGY# ? DIAGNOSIS PHYSICIAN 11/16/18 ??[id number] ??NEG ??JOSEF ??DOWNING DO 12/01/15 ??[id number] ??NEG-Organism ?? MALICK COLON Only the 3 most recent reports are included. ??Fewer reports may be available for some patients. ??This history does not include results of any Pap smears performed at other institutions or tissue studies done. Interpretation performed by [facility] Sailboat Captain Electronically signed 07/28/2022 04:04:30 PM ?? The Diagnostician signing this report is located at [facility], [address] [place] [address], [place], [place], [id number], , CLIA ID: [id number] Authorizing ProviderResult TypeResult StatusMaureen Shelbie Blandford DO PATHOLOGY/CYTOLOGY ORDERABLESFinal ResultPerforming OrganizationAddress City/State/ZIP CodePhone Number [facility] from Last 3 Months or Most Recently Relevant to Health Maintenance Additional Health Concerns Active ProblemsNoted DateDiagnosed DateRN: HOSPITAL DHZQICXBIKU91/19/2024RN: HEALTH MANAGEMENT RELATED TO COMPLEX FXSMOJYOAO21/29/2024Financial Insecurity (Food, Medications, Household Bills)12/12/2023 Insurance * Guarantor: Nakia Kang TypeRelation to PatientDate of PhoneBilling AddressPersonal/CufxipJwrn12/[address] [place] [address] Advance Directives For more information, please contact: [phone] * Full Code (Latest Code Status on File) Date ActivatedDate MljalwharkyYcppvvjl91/13/2025 9:03 PM01/18/2025 1:55 PM * Full Code Date ActivatedDate WmgdsaqedkuCswaaput31/11/2025 2:07 AM01/17/2025 6:01 PM * Full Code Date ActivatedDate InactivatedComments11/10/2024 9:35 AM11/17/2024 11:20 PM * Full Code Date ActivatedDate InactivatedComments09/12/2024 2:19 PM09/15/2024 8:10 PM * Full Code Date ActivatedDate InactivatedComments05/18/2024 2:50 AM05/18/2024 11:24 AM Care Teams Team MemberRelationshipSpecialtyStart DateEnd Derick Padgett MD PCP - GeneralInternal Medicine11/10/24 Mitchel Vick MA Weight Loss Support11/01/24
--- OUTSIDE RECORDS SUMMARY | 2025-02-09 13:41 | XMS_ITS | Clinical Summary ---
Author Organization [facility] [address] Care Team Providers Care Manager Gas Name Role Phone Derick Padgett MD Primary Care Provider [phone] Allergies Active AllergyReactionsCriticalityNoted DateCommentsLatexAnaphylaxisHigh 04/11/2019MetoclopramideAnxiety,Hives,GpnkegnosijaNbii24/05/2016Prednisone MinfxbbBecm38/08/2014 Pt states makes aggresive dizziness, headache, chest pain. Allergy is very questionable. ??Pt continues to complain of similar symptoms despite Prednisone being off. Pt states makes aggresive Not specified Medications MedicationSigDispense QuantityRefillsLast FilledStart DateEnd DateStatus traZODone (DESYREL) 300 mg tablet trazodone 300 mg tabletActive ondansetron (ZOFRAN ODT) 4 mg RAPID DISSOLVING tablet Take 1 Tab by mouth every 4 hours as mfxedz5511/19/2020ctive QUEtiapine (SEROQUEL) 300 mg tablet Take 1 Tab by mouth at bedtime 30 Tab 10/01/2023ctive diazePAM (VALIUM) 10 mg tablet Indications:anxietyTake 1 Tab by mouth two times a day 60 Tab 10/01/2023ctive haloperidoL (HALDOL) 10 mg tablet Take 1 Tab by mouth two times a day 60 Tab 10/01/2023ctive lithium carbonate (ESKALITH) 300 mg capsule Indications:Bipolar DisorderTake 2 Cap by mouth at bedtime 60 Cap 10/01/2023ctive Active Problems ProblemNoted DateDiagnosed DateBorderline personality /22/2024Suicidal ybwmpinl67/25/2023Intentional acetaminophen eshqiahl58/25/2023Ingestion of substance, intentional self-harm, initial gevqjxrdx21/23/2023Anorexia nervosa 12/09/2019Amphetamine abuse12/09/2019Class 1 obesity in adult12/09/2019 Knbwaeaznyggkyelba41/04/2020Suicidal kfosonzn03/03/2020Acetaminophen overdose of undetermined tfccjc3204/12/2019Migraine without aura and without status migrainosus, not oejhriajydy57/06/2020Mild intermittent asthma without ghifbkydvpdr00/06/2020Anxiety and pmgeebegvx89/04/2020Bipolar fgvkwtoz52/04/2020 Uncomplicated pzeonk2804/10/2019Ovarian cyst04/10/2019 Social History Tobacco UseTypesPacks/DayYears UsedDateSmoking Tobacco: FormerCigarettes Smokeless Tobacco: Never Tobacco Cessation:Counseling Given: Not Answered Alcohol UseStandard Drinks/WeekCommentsYes0 (1 standard drink = 0.6 oz pure alcohol)rare. 2-3 times per yearAH UtilitiesAnswerDate RecordedIn the past 12 months has the [employer], gas, oil, or water [employer] threatened to shut off services in your home?Patient mtyglrvf05/22/2024Humiliation, Afraid, Rape, and Kick questionnaireAnswerDate RecordedWithin the last year, have you been afraid of your partner or ex-partner?Patient pjhyzkqi25/22/2024Within the last year, have you been humiliated or emotionally abused in other ways by your partner or ex-partner?Patient gvlinprp38/22/2024Within the last year, have you been kicked, hit, slapped, or otherwise physically hurt by your partner or ex-partner?Patient xebmxyag84/22/2024Within the last year, have you been raped or forced to have any kind of sexual activity by your partner or ex-partner?Patient declined 09/26/2023UDIT-CAnswerDate RecordedQ1: How often do you have a drink containing alcohol?Never09/26/2023Q2: How many drinks containing alcohol do you have on a typical day when you are drinking?Patient does not drink09/26/2023Q3: How often do you have six or more drinks on one occasion?Never09/26/2023Hunger Vital Sign AnswerDate RecordedWithin the past 12 months, you worried that your food would run out before you got the money to buymore.Patient memlubqh67/22/2024Within the past 12 months, the food you bought just didn't last and you didn't have money to get more.Patient hqbqgipi62/22/2024RAPARE - TransportationAnswerDate RecordedIn the past 12 months, has lack of transportation kept you from medical appointments or from getting medications?Patient ylwuzbwu81/22/2024In the past 12 months, has lack of transportation kept you from meetings, work, or from getting things needed for daily living?Patient xsefcuax52/22/2024Housing Stability Vital SignAnswerDate RecordedIn the last 12 months, was there a time when you were not able to pay the mortgage or rent on time?Patient declined 09/26/2023In the past 12 months, how many times have you moved where you were living?t any time in the past 12 months, were you homeless or living in a prison (including now)?Patient sqpdmkyl13/22/2024CommentsNoSex and Gender InformationValueDate RecordedSex Assigned at BirthNot on fileLegal Sex Hdlnim2804/10/2019 12:33 PM ESTGender IdentityNot on fileSexual OrientationNot on file Last Filed Vital Signs Vital SignReadingTime TakenCommentsBlood Rmrcqciu528/6008 7:25 AM EDT Ftcmn6981 7:25 AM XGXKothglcqzcf05.8 ??C (98.2 ??F)10/09/2023 8:59 PM EDTRespiratory Mmau8427 7:25 AM EDTOxygen Xfugcqgtqt13%10/10/2023 7:25 AM EDTInhaled Oxygen Concentration--Kytjsu362.9 kg (260 lb)10/09/2023 8:59 PM SQTCrcozs666.6 cm (5' 4 )10/09/2023 8:59 PM EDTBody Mass Index44.6308 8:59 PM EDT Plan of Treatment Health MaintenanceDue DateLast DoneCommentsHIV Ymaxatieq83/26/2007Hepatitis C Thbhgiwdo49/26/2010DTaP/Tdap/Td Vaccines (1 - Tdap)05/30/2010Hepatitis B Vaccines (1 of 3 - 19+ 3-dose series)05/30/2010Pneumococcal Vaccines: Pediatrics (0 to 5 Years) and At-Risk Patients (6 to 49 Years) (1 of 2 - PCV)05/30/2010Pap Smear05/30/2012Cervical Cancer Klkzrjuvp14/26/2017Co-Test / HPV05/30/2016HPV Vaccines (1 - 3-dose SCDM series)05/30/2018Influenza Pyodsvhz23/01/2025 02/18/2022, 12/23/2020, 11/29/2018, Additional history existsCOVID-19 Vaccines (2024- season)503/10/2020, 04/20/2020HIB VaccinesAged OutNo longer eligible based on patient's age to complete this topicHISTORICAL VIEW: MMR VaccinesDiscontinuedHISTORICAL VIEW: Varicella VaccinesDiscontinuedHepatitis A VaccinesAged OutNo longer eligible based on patient's age to complete this topicIPV VaccinesAged OutNo longer eligible based on patient's age to complete this topicMeningococcal VaccinesAged OutNo longer eligible based on patient's age to complete this topicRotavirus VaccinesAged OutNo longer eligible based on patient's age to complete this topic Insurance * Guarantor: Adriana Cannon TypeRelation to PatientDate of BirthPhone Billing AddressPersonal/WyqyvhLfdp31/26/1991 [facility] [place] [address] * Guarantor: Adriana Cannon TypeRelation to PatientDate of BirthPhone Billing AddressPersonal/JmvlieYudu15/26/1991 [facility] [place] [address] Advance Directives For more information, please contact: [phone] * Total Support (Latest Code Status on File) Date ActivatedDate InactivatedComments09/27/2023 8:06 PM10/01/2023 2:34 PM * Total Support Date ActivatedDate InactivatedComments04/30/2022 1:00 AM05/06/2022 12:13 AM * Total Support Date ActivatedDate WthlsfmlwbfGrxbltwn28/4/2020 12:28 AM12/11/2019 4:27 PM * Total Support Date ActivatedDate InactivatedComments04/11/2019 6:50 04/17/2019 1:07 PM * Total Support Date ActivatedDate InactivatedComments04/10/2019 4:51 04/11/2019 6:50 PM Care Teams Team MemberRelationshipSpecialtyStart DateEnd Date Derick Padgett MD [address] [facility] [address] [place] [address] PCP - GeneralInternal Medicine10/09/23
[2025-02-09 14:12] LABS: Hematocrit 36.2 % (36.0-48.0); Hemoglobin 11.5 g/dL (12.0-16.0); Immature Granulocytes Abs Auto 0.02 10^3/uL (0.00-0.03); Immature Granulocytes Pct Auto 0.3 % (0.0-0.5); Lymphocytes Absolute Auto 1.7 10^3/uL (1.2-3.8); Mean Corpuscular HGB Conc 31.8 g/dL (29.9-35.2); Mean Corpuscular Hemoglobin 29.4 pg (26.7-34.0); Mean Corpuscular Volume 92.6 fL (81.0-99.0); Platelet Count 330 10^3/uL (150-450); Red Blood Count 3.91 10^6/uL (4.20-5.40); White Blood Count 6.1 10^3/uL (4.0-11.0)
[2025-02-09 14:19] LABS: Anion Gap 12.5; Blood Urea Nitrogen 9.0 mg/dL (7.0-18.0); Calcium 9.1 mg/dL (8.5-10.1); Carbon Dioxide 27.4 mmol/L (21.0-32.0); Chloride 103 mmol/L (98-107); Estimated GFR (African America >60 (>=60 mL/min/1.73m^2); Estimated GFR (Non-African Ame >60 (>=60 mL/min/1.73m^2); Glucose 86 mg/dL (74-106); Potassium 3.9 mmol/L (3.5-5.1); Sodium 139 mmol/L (136-145)
== END 2025-02-09 16:23 | disposition home or self-care (01) ==
PROVIDERS: Emergency Provider Emergency Medicine
DX: G40.909 Epilepsy, unspecified, not intractable, without status epilepticus (principal); Z79.899 Other long term (current) drug therapy
CPT/HCPCS: 36415; 70450; 80048; 80307; 80320; 81001; 84703; 85025; 93005; 99284; 99285